=== PATIENT | female | born 1960 | race Caucasian/White ===

== ENCOUNTER → 2017-02-08 | Outpatient (CLI) | payer OTHER ==
[~2017-02-08] MED LIST: CTP/1 PO; FLUV100T12 PO; LEVO112T2 PO; LORA-741 PO; METO25TA3 PO; POLY335019 PO; ROPI1TAB29 PO; SENN-65 PO; SYN100 PO
[2017-02-08 17:26] LABS: BLOOD UREA NITROGEN 12 mg/dl (7-18); CALCIUM 9.4 mg/dl (8.5-10.1); CARBON DIOXIDE 27 mmol/L (21-32); CHLORIDE 103 mmol/L (98-107); CREATININE 0.69 mg/dl (0.60-1.20); GLUCOSE 119 mg/dl (70-99); POTASSIUM 3.9 mmol/L (3.5-5.1); SODIUM 137 mmol/L (136-145)
== END | disposition home or self-care (01) ==
LOC: C.LAB 16:41
PROVIDERS: ATTEND Student in an Organized Health Care Education/Training Program
DX: R07.9 Chest pain, unspecified (principal); E03.9 Hypothyroidism, unspecified; R73.9 Hyperglycemia, unspecified

== ENCOUNTER → 2017-02-09 | Outpatient (CLI) | payer OTHER ==
--- NOTE | 2017-02-09 07:03 | DIAGNOSTIC IMAGING REPORT ---
BILIARY ULTRASOUND CLINICAL HISTORY: Dyspepsia. Abdominal pain. COMPARISON STUDY: 12/07/2015 FINDINGS: The liver is of increased echogenicity, suggesting hepatic steatosis. There is no ductal dilatation. There are no focal masses. The gallbladder appears sonographically normal. There is no right-sided hydronephrosis. The common bile duct measures 4 mm. No pancreatic masses are visualized.. IMPRESSION: Hepatic steatosis. Ultrasonographically normal gallbladder and pancreas. No ductal dilatation. Electronically signed by: Prabhu Cannon M.D. 02/09/2017 7:01 AM Dictated Date/Time: 02/09/2017 7:00 AM
== END | disposition home or self-care (01) ==
LOC: C.ULTR 05:56
PROVIDERS: ATTEND Student in an Organized Health Care Education/Training Program
DX: K30 Functional dyspepsia (principal); K76.0 Fatty (change of) liver, not elsewhere classified

== ENCOUNTER → 2017-02-20 | Outpatient (CLI) | payer OTHER | END | disposition home or self-care (01) | LOC: C.LAB 07:02 | PROVIDERS: ATTEND Family Medicine | DX: R73.9 Hyperglycemia, unspecified (principal) ==

== ENCOUNTER → 2017-03-20 | Outpatient (CLI) | payer OTHER ==
[2017-03-20 12:23] LABS: GLUCOSE,FASTING 159 mg/dl (70-99)
[2017-03-20 13:00] LABS: ALKALINE PHOSPHATASE 96 U/L (45-117); ALT/SGPT 85 U/L (12-78); AST/SGOT 67 U/L (15-37); CHOLESTEROL 202 mg/dl (0-200); CHOLESTEROL/HDL RATIO 4.2; HDL CHOLESTEROL 48 mg/dl; LDL CHOLESTEROL CALCULATED 112 mg/dl; TRIGLYCERIDES 211 mg/dl (0-150); VERY LOW DENSITY LIPOPROT CALC 42 mg/dl
[2017-03-20 13:12] LABS: ESTIMATED AVERAGE GLUCOSE 194 mg/dl; HA1C FLAG Normal (Normal)
== END | disposition home or self-care (01) ==
LOC: C.LAB 06:57
PROVIDERS: ATTEND Student in an Organized Health Care Education/Training Program
DX: Z13.1 Encounter for screening for diabetes mellitus (principal); K76.0 Fatty (change of) liver, not elsewhere classified

== ENCOUNTER 2017-05-17 06:47 | Emergency (ER) | payer OTHER ==
[~2017-05-17] VITALS: Ht 152.4 cm; Wt 75.7 kg
[~2017-05-17 06:47] MED LIST changes: -CTP/1 PO; -LEVO112T2 PO; -POLY335019 PO; -SENN-65 PO
[2017-05-17 06:54] VITALS: TEMP 36.5; Ht 152.4 cm; Wt 75.7 kg
[2017-05-17] MEDS ORDERED: LEVO112T2 PO (07:06)
[2017-05-17] MEDS ORDERED: CTP/1 PO (07:06)
[2017-05-17] MEDS ORDERED: SODIUM CHLORIDE 0.9% 1000ML 500 ML IV STA (07:09)
[2017-05-17] MEDS ORDERED: KETOROLAC TROMETHAMINE 30 MG/ML VIAL IV STA (07:09)
[2017-05-17] MEDS ORDERED: ONDANSETRON INJ 2 MG/ML 2 ML VIAL IV STA (07:09)
[2017-05-17] MEDS ORDERED: SODIUM CHLORIDE 0.9% 1000ML 1,000 ML IV STA (07:09)
[2017-05-17] MEDS ORDERED: ACETAMINOPHEN 500 MG TAB PO STA (07:09)
[2017-05-17] MEDS ORDERED: OPTIRAY 320 IV PRN (07:30)
--- NOTE | 2017-05-17 07:32 | EMERGENCY ROOM VISIT NOTE ---
History Report prepared by Edmund: Lizbeth Rico Under the Supervision of: Dr. William Cedillo M.D. First contact with patient: 06:53 Chief Complaint: ABDOMINAL PAIN Stated Complaint: SICK TO STOMACH,OVARIES HURTING X 3DAYS Nursing Triage Summary: pain in lower abdomen for the past 3 days. denies n/v/d. History of Present Illness The patient is a 56 year old female who presents to the Emergency Room with complaints of worsening bilateral lower abdominal pain that started 3 days ago. She rates her discomfort as a 10/10 in severity. The patient states that she has been unable to sleep much the last couple of nights secondary to the pain. The pain is relieved for a short amount of time with Tylenol. Nothing seems to cause the pain or make it worse. The pain on her right side wraps around into her back. She states that she experiences nausea whenever she eats, but she denies vomiting and diarrhea. She also denies fevers, chills, vaginal discharge , and urinary symptoms including burning, increased frequency, or increased urgency. The patient states that she experiences bloating whenever she eats but that is secondary to her history of gastroparesis. She has never experienced this type of pain in the past. The patient states that she does not have an appetite but that is normal for her and has not changed with her current symptoms. She regularly experiences issues with constipation and states that she may be a little constipated currently. The only abdominal procedure that she has had is a tubal ligation and she states that she still has her uterus, ovaries, gallbladder, and appendix. The patient denies any history of kidney stones, diverticulitis, or problems with her ovaries. The patient has 2 periumbilical hernias, but has not noticed any lumps in the area of her pain. Source of History: patient Onset: 3 days ago Position: abdomen (bilateral lower) Symptom Intensity: 10/10 Quality: other (bilateral lower abdominal pain) Timing: worsening Modifying Factors (Worsening): other (None) Modifying Factors (Relieving): tylenol Associated Symptoms: + nausea, No fevers, No chills, No vomiting, No diarrhea, No urinary symptoms (including burning, increased frequency, increased urgency) Note: no vaginal discharge Review of Systems See HPI for pertinent positives & negatives. A total of 10 systems reviewed and were otherwise negative. Past Medical & Surgical Medical Problems: (1) Cervical radiculopathy (2) Chest pain (3) Lightheaded (4) Low back pain (5) Periumbilical hernia Surgical Problems: (1) History of tubal ligation Family History FH: cancer Social History Smoking Status: Never Smoker Alcohol Use: none Drug Use: none Marital Status: , in relationship Housing Status: lives with family Occupation Status: employed Current/Historical Medications Scheduled Clonidine Hcl (Catapres), 0.5 TAB PO DAILY Fluvoxamine Maleate (Luvox), 150 MG PO HS Levothyroxine Sodium (Synthroid), 112 MCG PO DAILY Ropinirole Hydrochloride (Requip), 2 MG PO BID AT 1100 & 1800 Sennosides-Docusate Sodium (Senokot S), 2 TAB PO BID Allergies Coded Allergies: Buspirone (Verified Allergy, Unknown, PER DR ROSEN OUTPATIENT RX, 05/17/17) Nefazodone (Verified Allergy, Unknown, PER DR ROSEN OUTPATIENT RX, 05/17/17) Paroxetine (Verified Allergy, Unknown, PER DR ROSEN OUTPATIENT RX, 05/17/17) Sertraline (Verified Allergy, Unknown, PER DR ROSEN OUTPATIENT RX, 05/17/17) Physical Exam Vital Signs Date Time Temp Pulse Resp B/P (MAP) Pulse Ox O2 Delivery O2 Flow Rate FiO2 05/17/17 11:40 56 16 137/78 97 05/17/17 08:55 61 16 144/80 97 Room Air 05/17/17 06:54 36.5 67 18 144/89 97 Room Air Physical Exam GENERAL: Patient is in no acute distress. HEENT: No acute trauma, normocephalic atraumatic, mucous membranes moist, no nasal congestion, no scleral icterus. NECK: No stridor, no adenopathy, no meningismus, trachea is midline. LUNGS: Clear to auscultation bilaterally, no wheeze, no rhonchi, breath sounds equal. HEART: Without murmurs gallops or rubs, regular rate and rhythm. ABDOMEN: Soft, tender to palpation of both lower quadrants, bowel sounds positive, no hernias, no peritonitis. EXTREMITIES: No cyanosis or edema, full range of motion of all the joints without pain or difficulty, no signs for acute trauma. NEUROLOGIC: Oriented x 3, no acute motor or sensory deficits, no focal weakness. SKIN: No rash, no jaundice, no diaphoresis. Medical Decision & Procedures ER Provider Diagnostic Interpretation: CT results as stated below per my review and radiologist interpretation: CT SCAN OF THE ABDOMEN AND PELVIS WITH IV CONTRAST FINDINGS: Lung bases: The heart is normal in size and without pericardial effusion. The lung bases are clear noting dependent atelectasis. Liver: The contrast-enhanced liver is enlarged, measuring 21.2 cm in length. The liver demonstrates diffusely diminished attenuation consistent with hepatic steatosis. Fatty sparing is seen adjacent to gallbladder fossa. There is no intrahepatic biliary ductal dilatation. The hepatic veins and portal veins are patent. There are accessory right lobe hepatic veins. Gallbladder: Unremarkable. Spleen: The spleen is enlarged, measuring 15 cm in length. Pancreas: Unremarkable. Adrenal glands: Unremarkable. Kidneys: The contrast enhanced kidneys are normal in size and without hydronephrosis. The kidneys enhance symmetrically. Abdominal vasculature: The abdominal aorta is normal in course and caliber noting mild atherosclerotic calcification. Bowel: The small bowel and colon are normal in course and caliber. A duodenal diverticulum is incidentally noted. There is moderate colonic fecal retention. The appendix is well-visualized and normal. Peritoneum: There is no intraperitoneal free air or abdominal ascites. There are large fat-containing umbilical and supra umbilical hernias. Lymphadenopathy: None. Pelvic viscera: The bladder is normal as visualized. A bicornuate uterus is suggested. No adnexal lesion is seen. Bilateral ovarian follicles are noted. Skeletal structures: No lytic or blastic lesions are seen. IMPRESSION: 1. There are no acute infectious or inflammatory findings in the abdomen or pelvis. 2. Hepatomegaly and hepatic steatosis. 3. Splenomegaly. 4. Suspect a bicornuate uterus. 5. Additional findings as above. Electronically signed by: William Low M.D. 05/17/2017 10:43 AM Dictated Date/Time: 05/17/2017 10:18 AM Laboratory Results 05/17/17 07:25 Red Blood Count 4.64, Mean Corpuscular Volume 89.4, Mean Corpuscular Hemoglobin 30.4, Mean Corpuscular Hemoglobin Concent 34.0, Mean Platelet Volume 9.5, Neutrophils (%) (Auto) 57.8, Lymphocytes (%) (Auto) 32.2, Monocytes (%) (Auto) 7.1, Eosinophils (%) (Auto) 2.4, Basophils (%) (Auto) 0.5, Neutrophils # (Auto) 3.20, Lymphocytes # (Auto) 1.78, Monocytes # (Auto) 0.39, Eosinophils # (Auto) 0.13, Basophils # (Auto) 0.03 05/17/17 07:25 Test 05/17/17 07:25 05/17/17 09:44 White Blood Count 5.53 K/uL (4.8-10.8) Red Blood Count 4.64 M/uL (4.2-5.4) Hemoglobin 14.1 g/dL (12.0-16.0) Hematocrit 41.5 % (37-47) Mean Corpuscular Volume 89.4 fL (80-100) Mean Corpuscular Hemoglobin 30.4 pg (25-34) Mean Corpuscular Hemoglobin Concent 34.0 g/dl (32-36) Platelet Count 205 K/uL (130-400) Mean Platelet Volume 9.5 fL (7.4-10.4) Neutrophils (%) (Auto) 57.8 % Lymphocytes (%) (Auto) 32.2 % Monocytes (%) (Auto) 7.1 % Eosinophils (%) (Auto) 2.4 % Basophils (%) (Auto) 0.5 % Neutrophils # (Auto) 3.20 K/uL (1.4-6.5) Lymphocytes # (Auto) 1.78 K/uL (1.2-3.4) Monocytes # (Auto) 0.39 K/uL (0.11-0.59) Eosinophils # (Auto) 0.13 K/uL (0-0.5) Basophils # (Auto) 0.03 K/uL (0-0.2) RDW Standard Deviation 44.0 fL (36.4-46.3) RDW Coefficient of Variation 13.4 % (11.5-14.5) Immature Granulocyte % (Auto) 0.0 % Immature Granulocyte # (Auto) 0.00 K/uL (0.00-0.02) Anion Gap 8.0 mmol/L (3-11) Est Creatinine Clear Calc Drug Dose 76.9 ml/min Estimated GFR () 103.1 Estimated GFR (Non- 88.9 BUN/Creatinine Ratio 14.1 (10-20) Lactic Acid Level 1.7 mmol/L (0.4-2.0) Calcium Level 9.1 mg/dl (8.5-10.1) Total Bilirubin 0.4 mg/dl (0.2-1) Aspartate Amino Transf (AST/SGOT) 40 U/L (15-37) Alanine Aminotransferase (ALT/SGPT) 69 U/L (12-78) Alkaline Phosphatase 100 U/L (45-117) Total Protein 6.9 gm/dl (6.4-8.2) Albumin 3.7 gm/dl (3.4-5.0) Globulin 3.2 gm/dl (2.5-4.0) Albumin/Globulin Ratio 1.2 (0.9-2) Lipase 109 U/L (73-393) Urine Color YELLOW Urine Appearance CLEAR (CLEAR) Urine pH 5.0 (4.5-7.5) Urine Specific Isabel 1.014 (1.000-1.030) Urine Protein NEG (NEG) Urine Glucose (UA) 1+ (NEG) Urine Ketones NEG (NEG) Urine Occult Blood NEG (NEG) Urine Nitrite NEG (NEG) Urine Bilirubin NEG (NEG) Urine Urobilinogen NEG (NEG) Urine Leukocyte Esterase NEG (NEG) Laboratory results reviewed by me. Medications Administered Medications (Trade) Dose Ordered Sig/Mallorie Route Start Time Stop Time Status Last Admin Dose Admin Sodium Chloride 500 ml @ 999 mls/hr Q31M STAT IV 05/17/17 07:09 05/17/17 07:39 DC 05/17/17 07:32 999 MLS/HR Ondansetron HCl (Zofran Inj) 4 mg NOW STAT IV 05/17/17 07:09 05/17/17 07:16 DC 05/17/17 07:32 4 MG Sodium Chloride 1,000 ml @ 125 mls/hr Q8H STAT IV 05/17/17 07:09 05/17/17 11:43 DC 05/17/17 07:50 125 MLS/HR Ketorolac Tromethamine (Toradol Inj) 15 mg NOW STAT IV 05/17/17 07:09 05/17/17 07:16 DC 05/17/17 07:32 15 MG Acetaminophen (Tylenol Tab) 1,000 mg NOW STAT PO 05/17/17 07:09 05/17/17 07:16 DC 05/17/17 07:33 1,000 MG Senna/Docusate Sodium (Senokot S Tab) 2 tab NOW ONCE PO 05/17/17 11:30 05/17/17 11:31 DC 05/17/17 11:38 2 TAB ED Course 0707: The patient was evaluated in room A12. A complete history and physical exam was performed. 0709: Ordered Tylenol Tab 1000 mg PO, Toradol Inj 15 mg IV, Sodium Chloride 1000 ml @ 125 mls/hr IV, Zofran Inj 4 mg IV, Sodium Chloride 500 ml @ 999 mls/ hr IV 1120: Reevaluated the patient. She is doing well. Discussed results and discharge instructions: she verbalized understanding and agreement. The patient is ready for discharge. 1130: Ordered Senna/docusate Sodium 2 tab PO Medical Decision Differential diagnoses considered include diverticulitis, appendicitis, constipation, pancreatitis, biliary colic, ovarian cyst, UTI, renal colic, hernia. Medication Reconciliation: I attest that I have personally reviewed the patient' s current medication list. Blood pressure screening: Patient was found to have a slightly elevated blood pressure due to circumstances. I do not believe that the patient requires hypertension monitoring. There is no leukocytosis or concerning anemia. No significant electrolyte abnormality, kidney failure, hepatitis or pancreatitis. Urinalysis does not show infection. Abdominal and pelvis CT shows constipation, no appendicitis or diverticulitis, no bowel obstruction. The patient received IV saline, IV Zofran, IV Toradol and oral Tylenol. She was given oral Senokot. The patient looks well, there is no peritonitis. She is not toxic or febrile. Her pain may be from her constipation. She is being discharged with instructions on using Senokot and Miralax. If things are worsening, she can return. Impression Primary Impression: Lower abdominal pain Additional Impression: Constipation Scribe Attestation The scribe's documentation has been prepared under my direction and personally reviewed by me in its entirety. I confirm that the note above accurately reflects all work, treatment, procedures, and medical decision making performed by me. Departure Information Dispostion Home / Self-Care Prescriptions Sennosides-Docusate Sodium (SENOKOT S) 1 Tab Tab 2 TAB PO BID, #30 TAB Prov: William Cedillo M.D. 05/17/17 Referrals Herb Rosen M.D. (PCP) Forms Call Back Authorization, HOME CARE DOCUMENTATION FORM, IMPORTANT VISIT INFORMATION Patient Instructions My [facility] [employer] Additional Instructions senokot 2 tab twice a day to help bowel movements Miralax 1 heaping capfull in 8 oz of liquid every few hours until start having bowel movements return for worsening symptoms or if not improving Problem Qualifiers Additional Impression: Constipation Constipation type: unspecified constipation type Qualified Codes: K59.00 - Constipation, unspecified
[2017-05-17 07:38] LABS: BASO % 0.5 %; BASO ABS # 0.03 K/uL (0-0.2); COMPLETE YES; EOS % 2.4 %; HEMATOCRIT 41.5 % (37-47); LYMPH % 32.2 %; LYMPH ABS # 1.78 K/uL (1.2-3.4); MEAN CELL VOLUME 89.4 fL (80-100); MEAN CORPUSCULAR HEMOGLOBIN 30.4 pg (25-34); MEAN PLATELET VOLUME 9.5 fL (7.4-10.4); MONO % 7.1 %; NEUT % 57.8 %; PLATELET COUNT 205 K/uL (130-400); RED BLOOD COUNT 4.64 M/uL (4.2-5.4); WHITE BLOOD COUNT 5.53 K/uL (4.8-10.8)
[2017-05-17 07:54] LABS: BUN/CREATININE RATIO 14.1 (10-20); CALCIUM 9.1 mg/dl (8.5-10.1); CREATININE 0.76 mg/dl (0.60-1.20)
[2017-05-17 07:57] LABS: ALB/GLOB RATIO 1.2 (0.9-2)
[2017-05-17 09:52] LABS: URINE APPEARANCE CLEAR (CLEAR); URINE BILIRUBIN NEG (NEG); URINE COLOR YELLOW; URINE NITRITE NEG (NEG); URINE SPECIFIC GRAVITY 1.014 (1.000-1.030); UROBILINOGEN NEG (NEG); ZZUR CULT IF INDIC CLEAN CATCH NO
[2017-05-17 09:56] LABS: MANUAL MICROSCOPIC REQUIRED? NO; REVIEW REQ? NO
--- NOTE | 2017-05-17 10:44 | DIAGNOSTIC IMAGING REPORT ---
CT SCAN OF THE ABDOMEN AND PELVIS WITH IV CONTRAST CLINICAL HISTORY: Generalized abdominal pain. COMPARISON STUDY: Abdominal CT dated 08/27/2006. TECHNIQUE: Following the IV administration of 92 cc of Optiray 320, CT scan of the abdomen and pelvis is performed from the lung bases to the proximal femora. Images are reviewed in the axial, sagittal, and coronal planes. IV contrast was administered without complication. Automated dose control exposure was utilized. CT DOSE: 592.02 mGy.cm FINDINGS: Lung bases: The heart is normal in size and without pericardial effusion. The lung bases are clear noting dependent atelectasis. Liver: The contrast-enhanced liver is enlarged, measuring 21.2 cm in length. The liver demonstrates diffusely diminished attenuation consistent with hepatic steatosis. Fatty sparing is seen adjacent to gallbladder fossa. There is no intrahepatic biliary ductal dilatation. The hepatic veins and portal veins are patent. There are accessory right lobe hepatic veins. Gallbladder: Unremarkable. Spleen: The spleen is enlarged, measuring 15 cm in length. Pancreas: Unremarkable. Adrenal glands: Unremarkable. Kidneys: The contrast enhanced kidneys are normal in size and without hydronephrosis. The kidneys enhance symmetrically. Abdominal vasculature: The abdominal aorta is normal in course and caliber noting mild atherosclerotic calcification. Bowel: The small bowel and colon are normal in course and caliber. A duodenal diverticulum is incidentally noted. There is moderate colonic fecal retention. The appendix is well-visualized and normal. Peritoneum: There is no intraperitoneal free air or abdominal ascites. There are large fat-containing umbilical and supra umbilical hernias. Lymphadenopathy: None. Pelvic viscera: The bladder is normal as visualized. A bicornuate uterus is suggested. No adnexal lesion is seen. Bilateral ovarian follicles are noted. Skeletal structures: No lytic or blastic lesions are seen. IMPRESSION: 1. There are no acute infectious or inflammatory findings in the abdomen or pelvis. 2. Hepatomegaly and hepatic steatosis. 3. Splenomegaly. 4. Suspect a bicornuate uterus. 5. Additional findings as above. Electronically signed by: William Low M.D. 05/17/2017 10:43 AM Dictated Date/Time: 05/17/2017 10:18 AM
[2017-05-17] MEDS ORDERED: SENN-65 PO (11:30)
[2017-05-17] MEDS ORDERED: DOCUSATE SODIUM/SENNA 50/8.6MG TAB PO ONE (11:30)
[2017-05-17 11:40] VITALS: BP 137/78; PULSE 56; O2SAT 97
== END 2017-05-17 11:41 | disposition home or self-care (01) ==
LOC: C.EDB 06:50 → C.EDA 11:41
DX: K59.00 Constipation, unspecified (principal); K31.84 Gastroparesis; Z98.51 Tubal ligation status; Z80.9 Family history of malignant neoplasm, unspecified; Z79.899 Other long term (current) drug therapy

== ENCOUNTER 2017-05-19 02:54 | Emergency (ER) | payer OTHER ==
[~2017-05-19] VITALS: Ht 152.4 cm; Wt 76.9 kg
[~2017-05-19 02:54] MED LIST changes: +CTP/1 PO; +LEVO112T2 PO; -LORA-741 PO; -METO25TA3 PO; +SENN-65 PO; -SYN100 PO
[2017-05-19 02:59] VITALS: TEMP 36.6; Ht 152.4 cm; Wt 76.9 kg
[2017-05-19] MEDS ORDERED: SENN-65 PO (03:18)
[2017-05-19] MEDS ORDERED: POLY335019 PO (03:18)
[2017-05-19] MEDS ORDERED: SODIUM CHLORIDE 0.9% 1000ML 1,000 ML IV STA (04:00)
[2017-05-19] MEDS ORDERED: KETOROLAC TROMETHAMINE 15 MG/ML VIAL IV STA (04:00)
[2017-05-19] MEDS ORDERED: ONDANSETRON INJ 2 MG/ML 2 ML VIAL IV STA (04:00)
[2017-05-19 04:01] LABS: BASO % 0.3 %; BASO ABS # 0.02 K/uL (0-0.2); COMPLETE YES; IG% 0.2 %; LYMPH % 29.6 %; LYMPH ABS # 1.76 K/uL (1.2-3.4); MEAN CELL VOLUME 89.2 fL (80-100); MEAN CORPUSCULAR HEMOGLOBIN 30.5 pg (25-34); MEAN CORPUSCULAR HGB CONC 34.2 g/dl (32-36); MEAN PLATELET VOLUME 9.4 fL (7.4-10.4); MONO % 6.2 %; NEUT % 61.7 %; PLATELET COUNT 196 K/uL (130-400); RED BLOOD COUNT 4.26 M/uL (4.2-5.4); WHITE BLOOD COUNT 5.95 K/uL (4.8-10.8)
[2017-05-19 04:03] LABS: URINE APPEARANCE CLEAR (CLEAR); URINE BILIRUBIN NEG (NEG); URINE COLOR YELLOW; URINE NITRITE NEG (NEG); URINE SPECIFIC GRAVITY 1.026 (1.000-1.030); UROBILINOGEN NEG (NEG); ZZUR CULT IF INDIC CLEAN CATCH NO
[2017-05-19 04:04] LABS: MANUAL MICROSCOPIC REQUIRED? NO; REVIEW REQ? NO
--- NOTE | 2017-05-19 04:07 | EMERGENCY ROOM VISIT NOTE ---
History First contact with patient: 03:20 Chief Complaint: ABDOMINAL PAIN Stated Complaint: ABD PAIN,BACK PAIN ON RT SIDE Nursing Triage Summary: Patient reports RLQ abdominal pain with nausea that woke her from sleep. Patient seen in ED recently and told she was constipated. Patient has been taking prescribed medicine and having bowel movements. History of Present Illness The patient is a 56 year old female who presents to the Emergency Room with complaints of persistent abdominal pain. The patient was seen here 2 days ago for similar symptoms. She states that the pain woke her up this morning. She reports pain in her right lower abdomen which radiates into her right low back. She rates the discomfort an 8/10. She states that her symptoms did slightly improve after being seen here, but then worsened again. She has been taking medications for constipation at home and has been having normal bowel movements. She reports some mild nausea, but denies vomiting. She reports a low appetite, which is baseline for her. She denies any fevers or urinary symptoms. She states the pain is occasionally radiating into the right leg. She has a history of a tubal ligation and ablation and denies any other abdominal surgeries. Review of Systems A complete 10 point review of systems was reviewed with the patient with pertinent positives and negatives as per history of present illness. All else were negative. Past Medical/Surgical History Medical Problems: (1) Cervical radiculopathy (2) Chest pain (3) Lightheaded (4) Low back pain (5) Periumbilical hernia Surgical Problems: (1) History of tubal ligation Family History FH: cancer Social History Smoking Status: Never Smoker Alcohol Use: none Drug Use: none Marital Status: , in relationship Housing Status: lives with family Occupation Status: employed Current/Historical Medications Scheduled Clonidine Hcl (Catapres), 0.5 TAB PO BID Fluvoxamine Maleate (Luvox), 150 MG PO HS Levothyroxine Sodium (Synthroid), 112 MCG PO DAILY Polyethylene Glycol 3350 (Miralax), 17 GM PO DAILY Ropinirole Hydrochloride (Requip), 2 MG PO BID AT 1100 & 1800 Sennosides-Docusate Sodium (Senokot S), 2 TABS PO BID Allergies Coded Allergies: Buspirone (Verified Allergy, Unknown, PER DR ROSEN OUTPATIENT RX, 05/19/17) Nefazodone (Verified Allergy, Unknown, PER DR ROSEN OUTPATIENT RX, 05/19/17) Paroxetine (Verified Allergy, Unknown, PER DR ROSEN OUTPATIENT RX, 05/19/17) Sertraline (Verified Allergy, Unknown, PER DR ROSEN OUTPATIENT RX, 05/19/17) Physical Exam Vital Signs Date Time Temp Pulse Resp B/P (MAP) Pulse Ox O2 Delivery O2 Flow Rate FiO2 05/19/17 07:09 68 18 141/70 96 05/19/17 05:39 68 18 153/85 98 Room Air 05/19/17 02:59 36.6 72 16 141/83 95 Room Air Physical Exam VITALS: Vitals are noted on the nurse's note and reviewed by myself. Vital signs stable. GENERAL: This is a 56-year-old female, in no acute distress, nondiaphoretic, well-developed well-nourished. SKIN: Capillary reflex less than 2 seconds. HEART: Regular rate and rhythm without murmurs gallops or rubs. LUNGS: Clear to auscultation bilaterally without wheezes, rales or rhonchi. ABDOMEN: Positive bowel sounds x 4. Soft, tender over the right lower quadrant and suprapubic region. No guarding or rebound tenderness. No CVA tenderness. NEURO: Patient was alert and oriented to person place and time. Medical Decision & Procedures ER Provider Diagnostic Interpretation: EXAMINATION: PELVIC ULTRASOUND FINDINGS: The uterus measured 9.9 cm.. Possible bicornuate configuration. Trace fluid and potentially a small polyp within the central uterine canal measuring 8 mm.. Possible small lower segment uterine fibroid The endometrial stripe measured 9 mm with a possible 8 mm polyp. The right ovary measured 2.4 cm with normal vascular flow to centimeter cyst. The left ovary measured 3.3 cm normal vascular flow. 2.4 cm cyst.. Moderate prominence of the left uterine tube There is no ultrasonographic evidence of ovarian torsion. It should be noted that ovarian torsion can be present with normal Doppler ultrasonographic findings. There was no evidence of pathologic free pelvic fluid. IMPRESSION: 1. Bilateral ovarian cyst. 2. Moderate endometrial fluid with a probable endometrial polyp 3. Normal vascular flow to both ovaries 4. Probable septate uterus 5. Moderate prominence of what is potentially a left uterine tube at 6 mm Laboratory Results 05/19/17 03:50 Red Blood Count 4.26, Mean Corpuscular Volume 89.2, Mean Corpuscular Hemoglobin 30.5, Mean Corpuscular Hemoglobin Concent 34.2, Mean Platelet Volume 9.4, Neutrophils (%) (Auto) 61.7, Lymphocytes (%) (Auto) 29.6, Monocytes (%) (Auto) 6.2, Eosinophils (%) (Auto) 2.0, Basophils (%) (Auto) 0.3, Neutrophils # (Auto) 3.67, Lymphocytes # (Auto) 1.76, Monocytes # (Auto) 0.37, Eosinophils # (Auto) 0.12, Basophils # (Auto) 0.02 05/19/17 03:50 Test 05/19/17 03:45 05/19/17 03:50 Urine Color YELLOW Urine Appearance CLEAR (CLEAR) Urine pH 5.0 (4.5-7.5) Urine Specific [place] 1.026 (1.000-1.030) Urine Protein NEG (NEG) Urine Glucose (UA) 2+ (NEG) Urine Ketones NEG (NEG) Urine Occult Blood NEG (NEG) Urine Nitrite NEG (NEG) Urine Bilirubin NEG (NEG) Urine Urobilinogen NEG (NEG) Urine Leukocyte Esterase NEG (NEG) White Blood Count 5.95 K/uL (4.8-10.8) Red Blood Count 4.26 M/uL (4.2-5.4) Hemoglobin 13.0 g/dL (12.0-16.0) Hematocrit 38.0 % (37-47) Mean Corpuscular Volume 89.2 fL (80-100) Mean Corpuscular Hemoglobin 30.5 pg (25-34) Mean Corpuscular Hemoglobin Concent 34.2 g/dl (32-36) Platelet Count 196 K/uL (130-400) Mean Platelet Volume 9.4 fL (7.4-10.4) Neutrophils (%) (Auto) 61.7 % Lymphocytes (%) (Auto) 29.6 % Monocytes (%) (Auto) 6.2 % Eosinophils (%) (Auto) 2.0 % Basophils (%) (Auto) 0.3 % Neutrophils # (Auto) 3.67 K/uL (1.4-6.5) Lymphocytes # (Auto) 1.76 K/uL (1.2-3.4) Monocytes # (Auto) 0.37 K/uL (0.11-0.59) Eosinophils # (Auto) 0.12 K/uL (0-0.5) Basophils # (Auto) 0.02 K/uL (0-0.2) RDW Standard Deviation 42.9 fL (36.4-46.3) RDW Coefficient of Variation 13.2 % (11.5-14.5) Immature Granulocyte % (Auto) 0.2 % Immature Granulocyte # (Auto) 0.01 K/uL (0.00-0.02) Anion Gap 7.0 mmol/L (3-11) Est Creatinine Clear Calc Drug Dose 71.9 ml/min Estimated GFR () 94.0 Estimated GFR (Non- 81.1 BUN/Creatinine Ratio 18.2 (10-20) Calcium Level 8.7 mg/dl (8.5-10.1) Total Bilirubin 0.4 mg/dl (0.2-1) Aspartate Amino Transf (AST/SGOT) 34 U/L (15-37) Alanine Aminotransferase (ALT/SGPT) 60 U/L (12-78) Alkaline Phosphatase 96 U/L (45-117) Total Protein 6.5 gm/dl (6.4-8.2) Albumin 3.4 gm/dl (3.4-5.0) Globulin 3.1 gm/dl (2.5-4.0) Albumin/Globulin Ratio 1.1 (0.9-2) Lipase 481 U/L (73-393) Medications Administered Medications (Trade) Dose Ordered Sig/Mallorie Route Start Time Stop Time Status Last Admin Dose Admin Ondansetron HCl (Zofran Inj) 4 mg NOW STAT IV 05/19/17 04:00 05/19/17 04:01 DC 05/19/17 04:09 4 MG Sodium Chloride 1,000 ml @ 999 mls/hr Q1H1M STAT IV 05/19/17 04:00 05/19/17 05:00 DC 05/19/17 04:10 999 MLS/HR Ketorolac Tromethamine (Toradol Inj) 30 mg STK-MED ONCE .ROUTE 05/19/17 04:35 05/19/17 04:36 DC 05/19/17 04:10 15 MG Medical Decision Differential diagnosis includes appendicitis, UTI, ovarian cyst, ovarian torsion , bowel obstruction, constipation, among others. The patient is a 56-year-old female who presents today complaining of persistent abdominal pain. Patient was seen here 2 days ago and had negative CT scan. Labs today revealed no leukocytosis, anemia or concerning electrolyte abnormalities. Labs were essentially unchanged from previous visit. Glucose is elevated and patient will need follow-up with her PCP regarding this. Urinalysis was not suggestive of infection. Pelvic ultrasound was performed and did show bilateral ovarian cysts, which may be contributing to the patient' s pain. I do not feel that repeat CT is necessary given no leukocytosis or fever. The patient was instructed to follow-up with her PCP and [employer]AFF [employer] OFFICER regarding today's findings. She should return for worsening or new/concerning symptoms. Based on the patient's presentation and work up, I feel the patient is stable for outpatient treatment. The patient was educated to return to the emergency department for any worsening of their current condition or new/concerning symptoms. She will follow up with her PCP. Medication reconciliation: I attest that I have personally reviewed the patient 's current medication list. Blood Pressure Screening: Patient was found to have a slightly elevated blood pressure due to circumstances. I do not believe that the patient requires hypertension monitoring. Impression Primary Impression: Lower abdominal pain Departure Information Dispostion Home / Self-Care Condition GOOD Referrals Herb Rosen M.D. (PCP) Patient Instructions My [facility] Additional Instructions You have been treated in the Emergency Department for your Abdominal Pain. Laboratory results and imaging studies have ruled out any emergent causes for your abdominal pain which would warrant admission or surgery. For pain control, you can use the following [id number] medicines (if >12 yo): - Regular strength (325mg/tab) Tylenol (acetaminophen) 2 tabs every 4-6 hours as needed. Do not exceed 12 tablets in a 24 hour period. Avoid taking more than 4 grams (4000 mg) of Tylenol per day. This includes any other sources of acetaminophen you may take on a regular basis. - Regular strength (200 mg/tab) Advil (ibuprofen) 1-2 tabs every 4-6 hours as needed. Do not exceed a dose of 3200 mg per day. Follow up with your STAFF WEAPONS OFFICER. Drink plenty of water and stay well hydrated. As with any trip to the Emergency Department, you should follow-up with your Primary Care Provider from today's visit. Return to the emergency department if your symptoms persist despite treatment plan outlined above or if the following symptoms occur: Fevers, vomiting, worsening pain or any other new/concerning symptoms.
[2017-05-19 04:30] LABS: BUN/CREATININE RATIO 18.2 (10-20); CALCIUM 8.7 mg/dl (8.5-10.1); CREATININE 0.82 mg/dl (0.60-1.20); POTASSIUM 3.8 mmol/L (3.5-5.1)
[2017-05-19 04:32] LABS: ALB/GLOB RATIO 1.1 (0.9-2)
[2017-05-19] MEDS ORDERED: KETOROLAC TROMETHAMINE 30 MG/ML VIAL ONE (04:35)
--- NOTE | 2017-05-19 06:59 | DIAGNOSTIC IMAGING REPORT ---
EXAMINATION: PELVIC ULTRASOUND CLINICAL HISTORY: lower right abdominal pain PAIN COMPARISON STUDY: 12/23/2014 FINDINGS: The uterus measured 9.9 cm.. Possible bicornuate configuration. Trace fluid and potentially a small polyp within the central uterine canal measuring 8 mm.. Possible small lower segment uterine fibroid The endometrial stripe measured 9 mm with a possible 8 mm polyp. The right ovary measured 2.4 cm with normal vascular flow to centimeter cyst. The left ovary measured 3.3 cm normal vascular flow. 2.4 cm cyst.. Moderate prominence of the left uterine tube There is no ultrasonographic evidence of ovarian torsion. It should be noted that ovarian torsion can be present with normal Doppler ultrasonographic findings. There was no evidence of pathologic free pelvic fluid. IMPRESSION: 1. Bilateral ovarian cyst. 2. Moderate endometrial fluid with a probable endometrial polyp 3. Normal vascular flow to both ovaries 4. Probable septate uterus 5. Moderate prominence of what is potentially a left uterine tube at 6 mm Electronically signed by: Mario Niño M.D. 05/19/2017 6:58 AM Dictated Date/Time: 05/19/2017 6:52 AM
[2017-05-19 07:09] VITALS: BP 141/70; PULSE 68; O2SAT 96
== END 2017-05-19 07:11 | disposition home or self-care (01) ==
LOC: C.EDB 02:55
DX: N83.201 Unspecified ovarian cyst, right side (principal); N83.202 Unspecified ovarian cyst, left side; R10.31 Right lower quadrant pain; R11.0 Nausea

== ENCOUNTER → 2017-05-25 | Outpatient (CLI) | payer OTHER ==
[~2017-05-25] MED LIST changes: +POLY335019 PO
== END | disposition home or self-care (01) ==
LOC: C.PAPS 08:40
PROVIDERS: ATTEND Physician Assistant
DX: Z12.4 Encounter for screening for malignant neoplasm of cervix (principal)

== ENCOUNTER → 2017-05-27 | Outpatient (CLI) | payer OTHER | END | disposition home or self-care (01) | LOC: C.LAB 06:31 | PROVIDERS: ATTEND Physician Assistant | DX: N95.9 Unspecified menopausal and perimenopausal disorder (principal) ==

== ENCOUNTER → 2017-12-08 | Outpatient (CLI) | payer OTHER ==
[2017-12-08 10:22] LABS: HEMOGLOBIN A1C 6.3 % (4.5-5.6)
== END | disposition home or self-care (01) ==
LOC: C.LAB 08:43
PROVIDERS: ATTEND Family Medicine
DX: E11.9 Type 2 diabetes mellitus without complications (principal); E03.9 Hypothyroidism, unspecified

== ENCOUNTER 2018-02-13 11:39 | Emergency (ER) | payer OTHER ==
[~2018-02-13] VITALS: Ht 152.4 cm; Wt 76.0 kg
[2018-02-13 11:42] VITALS: TEMP 36.4; Ht 152.4 cm; Wt 76.0 kg
[2018-02-13] MEDS ORDERED: SODIUM CHLORIDE 0.9% 1000ML 1,000 ML IV STA (12:00)
[2018-02-13] MEDS ORDERED: ONDANSETRON INJ 2 MG/ML 2 ML VIAL IV STA (12:00)
[2018-02-13 12:03] LABS: BASO % 0.3 %; BASO ABS # 0.02 K/uL (0-0.2); EOS % 3.2 %; EOS ABS # 0.24 K/uL (0-0.5); HEMATOCRIT 40.7 % (37-47); HEMOGLOBIN 14.7 g/dL (12.0-16.0); IG# 0.01 K/uL (0.00-0.02); LYMPH % 24.6 %; LYMPH ABS # 1.85 K/uL (1.2-3.4); MEAN CELL VOLUME 88.7 fL (80-100); MEAN CORPUSCULAR HGB CONC 36.1 g/dl (32-36); MEAN PLATELET VOLUME 9.3 fL (7.4-10.4); MONO % 6.4 %; MONO ABS # 0.48 K/uL (0.11-0.59); NEUT % 65.4 %; NEUT ABS # 4.93 K/uL (1.4-6.5); PLATELET COUNT 217 K/uL (130-400); RED CELL DISTRIBUTION WIDTH CV 12.9 % (11.5-14.5); RED CELL DISTRIBUTION WIDTH SD 41.3 fL (36.4-46.3); WHITE BLOOD COUNT 7.53 K/uL (4.8-10.8)
[2018-02-13] MEDS ORDERED: OPTIRAY 320 IV PRN (12:15)
[2018-02-13 12:22] LABS: CREATININE 0.71 mg/dl (0.60-1.20)
[2018-02-13 12:23] LABS: ALBUMIN 4.2 gm/dl (3.4-5.0); CALCIUM 9.4 mg/dl (8.5-10.1)
[2018-02-13 12:26] LABS: TOTAL PROTEIN 7.7 gm/dl (6.4-8.2)
[2018-02-13] MEDS ORDERED: ASPI81TA28 PO (12:26)
[2018-02-13] MEDS ORDERED: GLC/500 PO (12:26)
--- NOTE | 2018-02-13 13:09 | DIAGNOSTIC IMAGING REPORT ---
ABD/PELVIS IV CONTRAST ONLY CLINICAL HISTORY: 57 years-old Female presenting with diffuse abd pain and fullness, gastroparesis. TECHNIQUE: Multidetector CT of the abdomen and pelvis was performed after the administration of intravenous contrast. IV contrast: 93 mL of Optiray 320. A dose lowering technique was used consistent with the principles of ALARA (as low as reasonably achievable). COMPARISON: 05/17/2017. CT DOSE (mGy.cm): The estimated cumulative dose is 527.68 mGycm. FINDINGS: Psychiatric Registered Nurse topogram: Unremarkable. Lung bases: Minimal basilar opacities, likely atelectasis. Normal heart size. No pericardial or pleural effusion. Liver: Mildly enlarged measuring over 19 cm in maximal sagittal dimension. Density consistent with hepatic steatosis. No focal lesion. Patent hepatic vasculature. Biliary: No intrahepatic or extrahepatic biliary ductal dilatation. Normal gallbladder. Pancreas: Normal. Spleen: Mildly enlarged measuring 13.4 cm in maximal sagittal dimension. Adrenal glands: Normal. Kidneys and ureters: Normal. No hydronephrosis. Bladder: Normal. Pelvic organs: A septate uterus morphology suggested. Normal ovaries. Bowel: Moderate stool burden in the right and transverse colon. The appendix is normal. Fecal material in the distal small bowel suggest delayed transit. No bowel obstruction. Prominent duodenal diverticulum at the level of the redundant duodenum. Peritoneal cavity: No free fluid or intraperitoneal gas. Lymph nodes: No enlarged lymph nodes in the abdomen or pelvis. Vasculature: Aorta and IVC patent and normal in caliber. Abdominal wall: Several small fat-containing ventral midline hernias noted. No associated inflammatory change. Musculoskeletal: Normal. IMPRESSION: 1. Feces in the distal small bowel suggest delayed transit. No evidence of bowel obstruction. 2. Hepatomegaly with hepatic steatosis. 3. Splenomegaly, which is nonspecific and can be seen in the setting of portal hypertension or lymphoproliferative disorders. Electronically signed by: Connor Real M.D. 02/13/2018 1:08 PM Dictated Date/Time: 02/13/2018 1:00 PM
[2018-02-13 14:36] VITALS: BP 121/73; PULSE 73; O2SAT 97
--- NOTE | 2018-02-13 18:41 | EMERGENCY ROOM VISIT NOTE ---
History Report prepared by Edmund: Johnny Ortiz Under the Supervision of: Dr. Alirio Brady D.O. First contact with patient: 11:51 Chief Complaint: ABDOMINAL PAIN Stated Complaint: SICK TO STOMACH History of Present Illness The patient is a 57 year old female who presents to the Emergency Room with complaints of a constant abdominal pain and nausea that began at 0900, 3 hours ago, after eating broccoli and carrots. The patient rates her pain as a 7/10 in severity. She states that her pain is localized to her epigastrium and that she feels very bloated across her entire abdomen. Nothing seems to improve the symptoms, but she notes that it is worse after eating pasta/foods high in carbohydrates. The patient notes that she normally gets this bloating sensation after eating as she has a history of gastroparesis. This diagnosis was given 4 years ago. She felt the need to vomit secondary to her nausea, but has not. The patient has no history of abdominal surgeries. She does have a history of diabetes and is on Metformin. She denies any other headache, change in vision, fevers, chest pain, shortness of breath, diarrhea, pain with urination, and melena. 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 A total of 10 systems reviewed and were otherwise negative. Past Medical & Surgical Medical Problems: (1) Cervical radiculopathy (2) Chest pain (3) Lightheaded (4) Low back pain (5) Periumbilical hernia Surgical Problems: (1) History of tubal ligation Family History FH: cancer Social History Smoking Status: Never Smoker Alcohol Use: none Drug Use: none Marital Status: , in relationship Housing Status: lives with family Occupation Status: employed Current/Historical Medications Scheduled Aspirin (Aspirin Ec), 81 MG PO DAILY Fluvoxamine Maleate (Luvox), 150 MG PO HS Levothyroxine Sodium (Synthroid), 112 MCG PO DAILY Metformin Hcl (Glucophage), 500 MG PO BID Ropinirole Hydrochloride (Requip), 2 MG PO BID AT 1100 & 1800 Allergies Coded Allergies: Buspirone (Verified Allergy, Unknown, PER DR ROSEN OUTPATIENT RX, 02/13/18) Nefazodone (Verified Allergy, Unknown, PER DR ROSEN OUTPATIENT RX, 02/13/18) Paroxetine (Verified Allergy, Unknown, PER DR ROSEN OUTPATIENT RX, 02/13/18) Sertraline (Verified Allergy, Unknown, PER DR ROSEN OUTPATIENT RX, 02/13/18) Physical Exam Vital Signs Date Time Temp Pulse Resp B/P (MAP) Pulse Ox O2 Delivery O2 Flow Rate FiO2 02/13/18 14:36 73 18 121/73 97 02/13/18 13:37 72 16 109/70 97 Room Air 02/13/18 11:42 36.4 74 20 139/90 95 Room Air Physical Exam GENERAL: Sitting up in bed, alert, holding periumbilical region, well nourished , mild distress, non-toxic EYE EXAM: normal conjunctiva. OROPHARYNX: no exudate, no erythema, lips, buccal mucosa, and tongue normal and mucous membranes are moist NECK: supple, no nuchal rigidity, no adenopathy, non-tender LUNGS: Clear to auscultation. Normal chest wall mechanics HEART: no murmurs, S1 normal and S2 normal ABDOMEN: abdomen is mildly distended and minimally diffusely tender to the periumbilical tenderness. normo-active bowel sounds, no masses, no rebound or guarding. BACK: Back is symmetrical on inspection and there is no deformity, no midline tenderness, no CVA tenderness. SKIN: no rashes and no bruising UPPER EXTREMITIES: upper extremities are grossly normal. LOWER EXTREMITIES: No pitting edema. Calves are equal bilaterally. NEURO EXAM: Normal sensorium, cranial nerves II-XII grossly intact, normal speech, no gross weakness of arms, no gross weakness of legs. Medical Decision & Procedures ER Provider Diagnostic Interpretation: Radiology results as stated below per my review and the radiologist's interpretation: ABD/PELVIS IV CONTRAST ONLY CLINICAL HISTORY: 57 years-old Female presenting with diffuse abd pain and fullness, gastroparesis. TECHNIQUE: Multidetector CT of the abdomen and pelvis was performed after the administration of intravenous contrast. IV contrast: 93 mL of Optiray 320. A dose lowering technique was used consistent with the principles of ALARA (as low as reasonably achievable). COMPARISON: 05/17/2017. CT DOSE (mGy.cm): The estimated cumulative dose is 527.68 mGycm. FINDINGS: Glassware Selector topogram: Unremarkable. Lung bases: Minimal basilar opacities, likely atelectasis. Normal heart size. No pericardial or pleural effusion. Liver: Mildly enlarged measuring over 19 cm in maximal sagittal dimension. Density consistent with hepatic steatosis. No focal lesion. Patent hepatic vasculature. Biliary: No intrahepatic or extrahepatic biliary ductal dilatation. Normal gallbladder. Pancreas: Normal. Spleen: Mildly enlarged measuring 13.4 cm in maximal sagittal dimension. Adrenal glands: Normal. Kidneys and ureters: Normal. No hydronephrosis. Bladder: Normal. Pelvic organs: A septate uterus morphology suggested. Normal ovaries. Bowel: Moderate stool burden in the right and transverse colon. The appendix is normal. Fecal material in the distal small bowel suggest delayed transit. No bowel obstruction. Prominent duodenal diverticulum at the level of the redundant duodenum. Peritoneal cavity: No free fluid or intraperitoneal gas. Lymph nodes: No enlarged lymph nodes in the abdomen or pelvis. Vasculature: Aorta and IVC patent and normal in caliber. Abdominal wall: Several small fat-containing ventral midline hernias noted. No associated inflammatory change. Musculoskeletal: Normal. IMPRESSION: 1. Feces in the distal small bowel suggest delayed transit. No evidence of bowel obstruction. 2. Hepatomegaly with hepatic steatosis. 3. Splenomegaly, which is nonspecific and can be seen in the setting of portal hypertension or lymphoproliferative disorders. Laboratory Results 02/13/18 11:50 Red Blood Count 4.59, Mean Corpuscular Volume 88.7, Mean Corpuscular Hemoglobin 32.0, Mean Corpuscular Hemoglobin Concent 36.1, Mean Platelet Volume 9.3, Neutrophils (%) (Auto) 65.4, Lymphocytes (%) (Auto) 24.6, Monocytes (%) (Auto) 6.4, Eosinophils (%) (Auto) 3.2, Basophils (%) (Auto) 0.3, Neutrophils # (Auto) 4.93, Lymphocytes # (Auto) 1.85, Monocytes # (Auto) 0.48, Eosinophils # (Auto) 0.24, Basophils # (Auto) 0.02 02/13/18 11:50 Test 02/13/18 11:50 02/13/18 13:45 White Blood Count 7.53 K/uL (4.8-10.8) Red Blood Count 4.59 M/uL (4.2-5.4) Hemoglobin 14.7 g/dL (12.0-16.0) Hematocrit 40.7 % (37-47) Mean Corpuscular Volume 88.7 fL (80-100) Mean Corpuscular Hemoglobin 32.0 pg (25-34) Mean Corpuscular Hemoglobin Concent 36.1 g/dl (32-36) Platelet Count 217 K/uL (130-400) Mean Platelet Volume 9.3 fL (7.4-10.4) Neutrophils (%) (Auto) 65.4 % Lymphocytes (%) (Auto) 24.6 % Monocytes (%) (Auto) 6.4 % Eosinophils (%) (Auto) 3.2 % Basophils (%) (Auto) 0.3 % Neutrophils # (Auto) 4.93 K/uL (1.4-6.5) Lymphocytes # (Auto) 1.85 K/uL (1.2-3.4) Monocytes # (Auto) 0.48 K/uL (0.11-0.59) Eosinophils # (Auto) 0.24 K/uL (0-0.5) Basophils # (Auto) 0.02 K/uL (0-0.2) RDW Standard Deviation 41.3 fL (36.4-46.3) RDW Coefficient of Variation 12.9 % (11.5-14.5) Immature Granulocyte % (Auto) 0.1 % Immature Granulocyte # (Auto) 0.01 K/uL (0.00-0.02) Anion Gap 9.0 mmol/L (3-11) Est Creatinine Clear Calc Drug Dose 81.5 ml/min Estimated GFR () 111.1 Estimated GFR (Non- 95.9 BUN/Creatinine Ratio 19.5 (10-20) Calcium Level 9.4 mg/dl (8.5-10.1) Total Bilirubin 0.4 mg/dl (0.2-1) Direct Bilirubin 0.1 mg/dl (0-0.2) Aspartate Amino Transf (AST/SGOT) 27 U/L (15-37) Alanine Aminotransferase (ALT/SGPT) 47 U/L (12-78) Alkaline Phosphatase 93 U/L (45-117) Total Protein 7.7 gm/dl (6.4-8.2) Albumin 4.2 gm/dl (3.4-5.0) Lipase 116 U/L (73-393) Urine Color YELLOW Urine Appearance CLEAR (CLEAR) Urine pH 5.0 (4.5-7.5) Urine Specific [place] 1.025 (1.000-1.030) Urine Protein NEG (NEG) Urine Glucose (UA) NEG (NEG) Urine Ketones NEG (NEG) Urine Occult Blood NEG (NEG) Urine Nitrite NEG (NEG) Urine Bilirubin NEG (NEG) Urine Urobilinogen NEG (NEG) Urine Leukocyte Esterase NEG (NEG) Urine WBC (Auto) 0 /hpf (0-5) Urine RBC (Auto) 0-4 /hpf (0-4) Urine Hyaline Casts (Auto) 0 /lpf (0-5) Urine Epithelial Cells (Auto) 10-20 /lpf (0-5) Urine Bacteria (Auto) NEG (NEG) Urine Test NEG (NEG) Laboratory results per my review. Medications Administered Medications (Trade) Dose Ordered Sig/Mallorie Route Start Time Stop Time Status Last Admin Dose Admin Sodium Chloride 1,000 ml @ 999 mls/hr Q1H1M STAT IV 02/13/18 12:00 02/13/18 13:00 DC 02/13/18 12:00 999 MLS/HR Ondansetron HCl (Zofran Inj) 4 mg NOW STAT IV 02/13/18 12:00 02/13/18 12:02 DC 02/13/18 12:18 4 MG ED Course ED COURSE: Vital signs were reviewed and showed hypertensive vital signs situationally The patients medical record was reviewed The above diagnostic studies were performed and reviewed. ED treatments and interventions as stated above. 1154: The patient was evaluated in room B6. A complete history and physical examination was performed. 1200: Ordered Zofran 4 mg IV, Sodium Chloride 1000 mL @ 999 mL/hr IV. 1338: I checked on the patient at this time. She is feeling better. 1531: Upon reevaluation, the patient is resting in bed.I discussed my findings with the patient and she understands and agrees with the treatment plan. Based on the patients age, coexisting illnesses, exam and lab findings the decision to treat as an outpatient was made. The patient remained stable while under my care. The patient appeared well at the time of discharge. Medical Decision Differential diagnoses includes but is not limited to gastritis, peptic ulcer disease, GERD, gallbladder disease, pancreatitis, small bowel obstruction, acute coronary syndrome, pericarditis, ischemic bowel, irritable bowel disease, irritable bowel syndrome, appendicitis, diverticulitis, malignancy, hernia, urinary tract infection, torsion, perforation, trauma, infectious. Patient is a 57-year-old female who presents the ER the past medical history of gastroparesis for epigastric abdominal pain started following eating broccoli. She notes that she gets this fairly consistently over the past 3 years and has been getting worse. She feels very full and bloated. Patient was distended and slightly tender. CBC along with BMP, LFTs, bilirubin lipase is unremarkable. UA was negative. Cranial she was negative. CT of the abdomen pelvis shows no obstruction or obvious infection. It does suggest slow gastric motility. Did attempt to call her PCP but she no longer practices with her group. Recommended following up as an outpatient. She was given fluids and IV Zofran. She did feel significantly better. She was discharged follow-up with PCP as an out patient. Of note she also declined follow-up with GI as she notes it was too expensive. Discussed with Pt concerning signs and symptoms to watch out for. Pt was instructed to follow up with their PCP and discussed with the patient their option to return to the ED at anytime for persistent or worsening symptoms. The appropriate anticipatory guidance and out-patient management, including indications for return to the emergency department, were explained at length to the patient and understood. Medication Reconcilliation Current Medication List: was personally reviewed by me Blood Pressure Screening Patient's blood pressure: Normal blood pressure Impression Primary Impression: Gastroparesis Additional Impression: Abdominal pain Scribe Attestation The scribe's documentation has been prepared under my direction and personally reviewed by me in its entirety. I confirm that the note above accurately reflects all work, treatment, procedures, and medical decision making performed by me. Departure Information Dispostion Home / Self-Care Referrals Herb Rosen M.D. (PCP) Forms Call Back Authorization, HOME CARE DOCUMENTATION FORM, IMPORTANT VISIT INFORMATION Patient Instructions My [facility] Additional Instructions Please follow up with your primary care doctor with in the next 24 hours. Any worsening of your symptoms, please return to the ED immediately. This includes any fevers greater than 100.4, worsening pain, chest pain, shortness breath, persistent nausea, vomiting, unable to eat or drink, or any other concerning signs or symptoms from your standpoint. Please make sure you follow-up with your PCP as stated. Problem Qualifiers Additional Impression: Abdominal pain Abdominal location: unspecified location Qualified Codes: R10.9 - Unspecified abdominal pain
== END 2018-02-13 14:37 | disposition home or self-care (01) ==
LOC: C.EDB 11:41
DX: K31.84 Gastroparesis (principal); R10.13 Epigastric pain; E11.9 Type 2 diabetes mellitus without complications; M54.12 Radiculopathy, cervical region; M54.5 Low back pain; Z80.9 Family history of malignant neoplasm, unspecified; Z79.82 Long term (current) use of aspirin; Z79.899 Other long term (current) drug therapy; Z88.8 Allergy status to other drugs, medicaments and biological substances

== ENCOUNTER → 2018-02-23 | Outpatient (CLI) | payer OTHER ==
[~2018-02-23] MED LIST changes: +ASPI81TA28 PO; -CTP/1 PO; +GLC/500 PO; -POLY335019 PO; -SENN-65 PO
[2018-02-23 10:05] LABS: HEMOGLOBIN A1C 6.3 % (4.5-5.6)
== END | disposition home or self-care (01) ==
LOC: C.LAB 09:19
PROVIDERS: ATTEND Family Medicine
DX: E11.9 Type 2 diabetes mellitus without complications (principal)

== ENCOUNTER 2018-03-30 08:38 | Observation (INO) | payer OTHER ==
[~2018-03-30] VITALS: Ht 152.4 cm; Wt 74.3 kg
[2018-03-30] MEDS ORDERED: ACETAMINOPHEN 500 MG TAB PO STA (08:41)
[2018-03-30] MEDS ORDERED: ASPIRIN 81 MG CHEW PO STA (08:41)
[2018-03-30] MEDS ORDERED: NITROGLYCERIN 0.4 MG SL PER TAB CHARGE SL PRN ×2 (08:45→10:45)
--- NOTE | 2018-03-30 08:45 | EMERGENCY ROOM VISIT NOTE ---
History Report prepared by Edmund: Johnny Ortiz Under the Supervision of: Dr. Lester Ghosh D.O. First contact with patient: 08:39 Stated Complaint: CHEST PAIN History of Present Illness The patient is a 57 year old female who presents to the Emergency Room with complaints of intermittent chest pain that began this morning at 0650, 2 hours ago. The patient states that she initially felt pain in the left side of her chest and subsequently in her neck and left arm. She describes a "heaviness" in her chest and a "dull" pain in her left arm and neck. She denies anything improving or worsening her symptoms. She denies any shortness of breath. The patient was admitted for similar symptoms in the past, but did not have a catheterization performed. Source of History: patient Onset: 2 hours ago Position: chest Quality: dull, other (Heaviness) Timing: intermittent Modifying Factors (Worsening): other (N/A) Modifying Factors (Relieving): other (N/A) Associated Symptoms: + neck pain Note: Left arm pain Review of Systems See HPI for pertinent positives & negatives. A total of 10 systems reviewed and were otherwise negative. Past Medical & Surgical Medical Problems: (1) Cervical radiculopathy (2) Chest pain (3) Lightheaded (4) Low back pain (5) Periumbilical hernia Surgical Problems: (1) History of tubal ligation Family History FH: cancer Social History Smoking Status: Never Smoker Alcohol Use: none Drug Use: none Marital Status: , in relationship Housing Status: lives with family Occupation Status: employed Current/Historical Medications Scheduled Aspirin (Aspirin Ec), 81 MG PO DAILY Fluvoxamine Maleate (Luvox), 150 MG PO HS Levothyroxine Sodium (Synthroid), 112 MCG PO DAILY Metformin Hcl (Glucophage), 500 MG PO BID Ropinirole Hydrochloride (Requip), 2 MG PO BID Allergies Coded Allergies: Buspirone (Verified Allergy, Unknown, PER DR ROSEN OUTPATIENT RX, 03/30/18) Nefazodone (Verified Allergy, Unknown, PER DR ROSEN OUTPATIENT RX, 03/30/18 ) Paroxetine (Verified Allergy, Unknown, PER DR ROSEN OUTPATIENT RX, 03/30/18 ) Sertraline (Verified Allergy, Unknown, PER DR ROSEN OUTPATIENT RX, 03/30/18 ) Physical Exam Vital Signs Date Time Temp Pulse Resp B/P (MAP) Pulse Ox O2 Delivery O2 Flow Rate FiO2 03/30/18 09:35 57 18 120/76 96 Room Air 03/30/18 09:19 66 18 117/76 97 Room Air 03/30/18 09:05 72 18 149/90 97 Room Air 03/30/18 08:53 95 Room Air 03/30/18 08:53 36.5 90 20 172/95 95 Room Air 03/30/18 08:53 95 Room Air 03/30/18 08:53 95 Room Air 03/30/18 08:43 72 Physical Exam GENERAL: Patient is awake, alert, and in no acute distress. Very anxious appearing and uncomfortable. EYES: The conjunctivae are clear. The pupils are round and reactive. EARS, NOSE, MOUTH AND THROAT: The nose is without any evidence of any deformity. Mucous membranes are moist tongue is midline NECK: The neck is nontender and supple. RESPIRATORY: Normal respiratory effort is noted there is no evidence of wheezing rhonchi or rales CARDIOVASCULAR: Regular rate and rhythm noted there no murmurs rubs or gallops normal S1 normal S2 GASTROINTESTINAL: The abdomen is soft. Bowel sounds are present in all quadrants. Abdomen is nontender MUSCULOSKELETAL/EXTREMITIES: There is no evidence of gross deformity full range of motion is noted in the hips and shoulders SKIN: There is no obvious evidence of any rash. There are no petechiae, pallor or cyanosis noted. NEUROLOGIC: Patient is awake alert and oriented x3 strength is symmetric patellar reflexes are 2+ bilaterally Medical Decision & Procedures ER Provider Diagnostic Interpretation: Radiology results as stated below per my review and radiologist interpretation: CHEST ONE VIEW PORTABLE HISTORY: EVALUATE RESPIRATORY DISTRESS.DYSPNEA COMPARISON: Chest 01/12/2016. FINDINGS: No pleural effusions. No pneumothorax. The heart is normal in size. Left basilar linear densities likely represent scarring. This remains unchanged. No new focal lung consolidations to suggest pneumonia. No evidence for pulmonary edema. S-shaped scoliosis of the thoracic spine. IMPRESSION: No significant change compared to the prior study. No acute process. Electronically signed by: Nile Christy M.D. 03/30/2018 8:55 AM Dictated Date/Time: 03/30/2018 8:54 AM Laboratory Results 03/30/18 08:45 Red Blood Count 4.38, Mean Corpuscular Volume 88.4, Mean Corpuscular Hemoglobin 30.8, Mean Corpuscular Hemoglobin Concent 34.9, Mean Platelet Volume 8.8, Neutrophils (%) (Auto) 55.0, Lymphocytes (%) (Auto) 33.5, Monocytes (%) (Auto) 7.9, Eosinophils (%) (Auto) 3.0, Basophils (%) (Auto) 0.4, Neutrophils # (Auto) 3.13, Lymphocytes # (Auto) 1.90, Monocytes # (Auto) 0.45, Eosinophils # (Auto) 0.17, Basophils # (Auto) 0.02 03/30/18 08:45 Test 03/30/18 08:45 03/30/18 08:53 03/30/18 09:30 White Blood Count 5.68 K/uL (4.8-10.8) Red Blood Count 4.38 M/uL (4.2-5.4) Hemoglobin 13.5 g/dL (12.0-16.0) Hematocrit 38.7 % (37-47) Mean Corpuscular Volume 88.4 fL (80-100) Mean Corpuscular Hemoglobin 30.8 pg (25-34) Mean Corpuscular Hemoglobin Concent 34.9 g/dl (32-36) Platelet Count 219 K/uL (130-400) Mean Platelet Volume 8.8 fL (7.4-10.4) Neutrophils (%) (Auto) 55.0 % Lymphocytes (%) (Auto) 33.5 % Monocytes (%) (Auto) 7.9 % Eosinophils (%) (Auto) 3.0 % Basophils (%) (Auto) 0.4 % Neutrophils # (Auto) 3.13 K/uL (1.4-6.5) Lymphocytes # (Auto) 1.90 K/uL (1.2-3.4) Monocytes # (Auto) 0.45 K/uL (0.11-0.59) Eosinophils # (Auto) 0.17 K/uL (0-0.5) Basophils # (Auto) 0.02 K/uL (0-0.2) RDW Standard Deviation 42.6 fL (36.4-46.3) RDW Coefficient of Variation 13.2 % (11.5-14.5) Immature Granulocyte % (Auto) 0.2 % Immature Granulocyte # (Auto) 0.01 K/uL (0.00-0.02) Prothrombin Time 9.8 SECONDS (9.0-12.0) Prothromb Time International Ratio 0.9 (0.9-1.1) Activated Partial Thromboplast Time 25.7 SECONDS (21.0-31.0) Partial Thromboplastin Ratio 1.0 Anion Gap 6.0 mmol/L (3-11) Est Creatinine Clear Calc Drug Dose 71.5 ml/min Estimated GFR () 92.0 Estimated GFR (Non- 79.4 BUN/Creatinine Ratio 16.3 (10-20) Calcium Level 9.1 mg/dl (8.5-10.1) Magnesium Level 1.9 mg/dl (1.8-2.4) Total Bilirubin 0.4 mg/dl (0.2-1) Aspartate Amino Transf (AST/SGOT) 31 U/L (15-37) Alanine Aminotransferase (ALT/SGPT) 52 U/L (12-78) Alkaline Phosphatase 76 U/L (45-117) Total Creatine Kinase 120 U/L (26-192) Creatine Kinase MB 2.0 ng/ml (0.5-3.6) Creatine Kinase MB Ratio 1.7 (0-3.0) Troponin I < 0.015 ng/ml (0-0.045) Total Protein 7.5 gm/dl (6.4-8.2) Albumin 4.0 gm/dl (3.4-5.0) Globulin 3.5 gm/dl (2.5-4.0) Albumin/Globulin Ratio 1.2 (0.9-2) Bedside D-Dimer 95 ng/mlFEU (0-450) Urine Color [place] YELLOW Urine Appearance CLEAR (CLEAR) Urine pH 5.0 (4.5-7.5) Urine Specific [place] 1.020 (1.000-1.030) Urine Protein NEG (NEG) Urine Glucose (UA) NEG (NEG) Urine Ketones NEG (NEG) Urine Occult Blood NEG (NEG) Urine Nitrite NEG (NEG) Urine Bilirubin NEG (NEG) Urine Urobilinogen NEG (NEG) Urine Leukocyte Esterase NEG (NEG) Laboratory results per my review. Medications Administered Medications (Trade) Dose Ordered Sig/Mallorie Route Start Time Stop Time Status Last Admin Dose Admin Nitroglycerin (Nitrostat Tab) 0.4 mg Q5M PRN SL 03/30/18 08:45 03/30/18 11:04 DC 03/30/18 09:02 0.4 MG Aspirin (Aspirin Chew) 324 mg NOW STAT PO 03/30/18 08:41 03/30/18 08:43 DC 03/30/18 09:04 324 MG Acetaminophen (Tylenol Tab) 1,000 mg NOW STAT PO 03/30/18 08:41 03/30/18 08:43 DC 03/30/18 09:03 1,000 MG Nitroglycerin (Nitrostat Tab) 0.4 mg UD PRN SL 03/30/18 10:45 04/29/18 10:44 03/30/18 13:11 0.4 MG ECG Per My Interpretation Indication: chest pain Rate (beats per minute): 81 Rhythm: normal sinus Findings: other (T-wave flattening noted, no PVCs) Comparison ECG Date: 01/13/2016 Change: no significant change ED Course 0838: The patient was evaluated in room B2. A complete history and physical examination were performed. 0841: Ordered Tylenol 1000 mg PO, Aspirin 324 mg PO. 1011: I discussed the case with Dr. Tori Sanz [facility]. She will evaluate the patient for further treatment. Medical Decision Differential diagnosis: Etiologies such as cardiac ischemia, aortic dissection, pulmonary embolism, pneumonia, pneumothorax, musculoskeletal, infections, pericarditis, myocarditis , esophageal rupture, gastrointestinal, as well as others were entertained. Nursing notes reviewed. The patient is a 57-year-old female who presented to the emergency department for an evaluation of chest discomfort. The patient noted yesterday that she was having exertional chest discomfort while pushing a lawnmower. She started having chest pain while she was at work today. 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 She has had similar symptoms in the past. She was treated with aspirin and nitroglycerin with good relief of her symptoms. I discussed patient's laboratory and radiographic studies with her. I also discussed the limitations of the emergency department workup for chest pain with her. Given her past medical history and exertional symptoms I discussed her case with the on-call [facility] [place] hospitalist. They have agreed to evaluate the patient in the emergency department for further management and disposition. Medication Reconcilliation Current Medication List: was personally reviewed by me Kaur Pressure Screening Patient's blood pressure: Elevated blood pressure Referred to hospitalist. Consults Time Called: 1005 Consulting Physician: Dr. Tori Sanz Hospitalist Returned Call: 1011 I discussed the case with Dr. Tori Sanz Hospitalist. She will evaluate the patient for further treatment. Impression Primary Impression: Exertional chest pain Scribe Attestation The scribe's documentation has been prepared under my direction and personally reviewed by me in its entirety. I confirm that the note above accurately reflects all work, treatment, procedures, and medical decision making performed by me. Departure Information Dispostion Being Evaluated By Hospitalist Referrals Herb Rosen M.D. (PCP)
[2018-03-30 08:56] LABS: BASO % 0.4 %; BASO ABS # 0.02 K/uL (0-0.2); EOS ABS # 0.17 K/uL (0-0.5); HEMATOCRIT 38.7 % (37-47); HEMOGLOBIN 13.5 g/dL (12.0-16.0); IG# 0.01 K/uL (0.00-0.02); LYMPH % 33.5 %; MEAN CELL VOLUME 88.4 fL (80-100); MEAN CORPUSCULAR HEMOGLOBIN 30.8 pg (25-34); MEAN CORPUSCULAR HGB CONC 34.9 g/dl (32-36); MEAN PLATELET VOLUME 8.8 fL (7.4-10.4); MONO % 7.9 %; MONO ABS # 0.45 K/uL (0.11-0.59); NEUT ABS # 3.13 K/uL (1.4-6.5); PLATELET COUNT 219 K/uL (130-400); RED CELL DISTRIBUTION WIDTH CV 13.2 % (11.5-14.5); RED CELL DISTRIBUTION WIDTH SD 42.6 fL (36.4-46.3); WHITE BLOOD COUNT 5.68 K/uL (4.8-10.8)
--- NOTE | 2018-03-30 08:56 | DIAGNOSTIC IMAGING REPORT ---
CHEST ONE VIEW PORTABLE HISTORY: EVALUATE RESPIRATORY DISTRESS.DYSPNEA COMPARISON: Chest 01/12/2016. FINDINGS: No pleural effusions. No pneumothorax. The heart is normal in size. Left basilar linear densities likely represent scarring. This remains unchanged. No new focal lung consolidations to suggest pneumonia. No evidence for pulmonary edema. S-shaped scoliosis of the thoracic spine. IMPRESSION: No significant change compared to the prior study. No acute process. Electronically signed by: Nile Christy M.D. 03/30/2018 8:55 AM Dictated Date/Time: 03/30/2018 8:54 AM
[2018-03-30 09:05] LABS: INR 0.9 (0.9-1.1); PTT PATIENT 25.7 SECONDS (21.0-31.0)
[2018-03-30 09:20] LABS: ALKALINE PHOSPHATASE 76 U/L (45-117); ALT/SGPT 52 U/L (12-78); AST/SGOT 31 U/L (15-37); BLOOD UREA NITROGEN 14 mg/dl (7-18); CALCIUM 9.1 mg/dl (8.5-10.1); CARBON DIOXIDE 28 mmol/L (21-32); CREATININE 0.83 mg/dl (0.60-1.20); GLUCOSE 119 mg/dl (70-99); POTASSIUM 3.9 mmol/L (3.5-5.1); SODIUM 138 mmol/L (136-145); TOTAL PROTEIN 7.5 gm/dl (6.4-8.2)
[2018-03-30] MEDS ORDERED: DEXTROSE 50% 50 ML SYR IV PRN (10:45)
[2018-03-30] MEDS ORDERED: DC ALL PREVIOUSLY ORDERED DIABETES MEDS ONE (10:45)
[2018-03-30] MEDS ORDERED: GLUCOSE 10 TABS/TUBE PO PRN (10:45)
[2018-03-30] MEDS ORDERED: GLUCAGON FOR INJ 1 MG VIAL SQ PRN (10:45)
[2018-03-30] MEDS ORDERED: CARBOHYDRATES FOR HYPOGLYCEMIA PO PRN (10:45)
[2018-03-30] MEDS ORDERED: GLUCOSE 40% GEL 15 GM TUBE PO PRN (10:45)
[2018-03-30] MEDS ORDERED: ONDANSETRON INJ 2 MG/ML 2 ML VIAL IV PRN (10:45)
[2018-03-30 11:09] VITALS: O2SAT 96; Ht 152.4 cm; Wt 74.3 kg
--- NOTE | 2018-03-30 11:17 | History and Physical ---
History & Physical Date & Time of Service: March 30, 2018 at 10:51 Chief Complaint: Chest Pain Primary Care Physician: Herb Rosen M.D. History of Present Illness Source: patient Ms. Crawford is a pleasant 57yo C female with history of diabetes, hypertension presenting today with chest pain. 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 She felt warm at the time but no diaphoresis/nausea/palpitations or dizziness. The sharp pain was followed by a chest pressure and heaviness that lasted approximately 10 minutes before resolving on its own. She had a recurrence of the chest pain one hour later, brief sharp pain that was followed by chest heaviness/pressure. She is now complaining only of aching in the left arm. Patient states that she is fairly active. She rides a stationary bike 3 times per week. She does endorse some occasional chest heaviness and aching in her legs after approximately 5 minutes of riding the bike that is relieved with rest. She had some shortness of breath last night with mowing the lawn. She was seen in January 2016 with similar presentation. At that time there were no EKG changes, troponin remained negative. She had a stress echo performed which was negative. No additional complaints at this time. ER Course: ASA 324mg, Tylenol 1000 mg, Nitroglycerine 0.4mg Past Medical/Surgical History Medical Problems: (1) Abdominal pain (2) Abdominal pain (3) Anemia (4) Anxiety (5) Cervical radiculopathy (6) Chest pain (7) Constipation (8) DUB (dysfunctional uterine bleeding) (9) Endometrial polyp (10) Gastroparesis (11) Lightheaded (12) Low back pain (13) Low back pain (14) Lower abdominal pain (15) Lower abdominal pain (16) Nausea (17) Ovarian cyst (18) Pain in scapula (19) Periumbilical hernia (20) Precordial chest pain (21) Restless leg Surgical Problems: (1) History of tubal ligation Family History FH: cancer No family history of CAD Social History Smoking Status: Never Smoker Smokeless Tobacco Use: No Drug Use: none Marital Status: , in relationship Housing status: lives with significant other Occupational Status: employed Allergies Coded Allergies: Buspirone (Verified Allergy, Unknown, PER DR ROSEN OUTPATIENT RX, 03/30/18) Nefazodone (Verified Allergy, Unknown, PER DR ROSEN OUTPATIENT RX, 03/30/18 ) Paroxetine (Verified Allergy, Unknown, PER DR ROSEN OUTPATIENT RX, 03/30/18 ) Sertraline (Verified Allergy, Unknown, PER DR ROSEN OUTPATIENT RX, 03/30/18 ) Home Medications Scheduled Aspirin (Aspirin Ec), 81 MG PO DAILY Fluvoxamine Maleate (Luvox), 150 MG PO HS Levothyroxine Sodium (Synthroid), 112 MCG PO DAILY Metformin Hcl (Glucophage), 500 MG PO BID Ropinirole Hydrochloride (Requip), 2 MG PO BID Review of Systems Constitutional: No fever, No chills, No sweats Eyes: No worsening of vision ENT: No sore throat, No trouble swallowing Respiratory: + dyspnea on exertion, No cough, No sputum, No wheezing, No shortness of breath Cardiovascular: + orthopnea, No chest pain, No edema, No palpitations Abdomen: + pain, + nausea, + vomiting, + diarrhea, + constipation Musculoskeletal: No muscle pain, No calf pain Genitourinary - Female: No dysuria Hematologic / Lymphatic: No abnormal bleeding/bruising Integumentary: No rash Physical Exam Vital Signs Date Time Temp Pulse Resp B/P (MAP) Pulse Ox O2 Delivery O2 Flow Rate FiO2 03/30/18 09:35 57 18 120/76 96 Room Air 03/30/18 09:19 66 18 117/76 97 Room Air 03/30/18 09:05 72 18 149/90 97 Room Air 03/30/18 08:53 95 Room Air 03/30/18 08:53 36.5 90 20 172/95 95 Room Air 03/30/18 08:53 95 Room Air 03/30/18 08:53 95 Room Air 03/30/18 08:43 72 General: patient resting comfortably, NAD Skin: warm, dry, intact, no rashes or lesions HEENT: NC/AT, PERRL, anicteric, conjunctiva without injection, MMM, no JVD, no thyromegaly, neck supple Heart: +S1/S2, regular, no m/r/g, no carotid bruits, palpable pulses 2+ in UE/ LE bilaterally Lungs: equal air entry bilaterally, no rales/rhonchi or wheezes Abdomen: soft, NT/ND, no masses Ext: warm, well perfused, 2+ pulses, trace pitting edema in bilateral LE to below knee, right wrist brace in place Neuro: grossly nonfocal Diagnostics Laboratory Results Results Past 24 Hours Test 03/30/18 08:45 03/30/18 08:53 03/30/18 09:30 Range/Units White Blood Count 5.68 4.8-10.8 K/uL Red Blood Count 4.38 4.2-5.4 M/uL Hemoglobin 13.5 12.0-16.0 g/dL Hematocrit 38.7 37-47 % Mean Corpuscular Volume 88.4 80-100 fL Mean Corpuscular Hemoglobin 30.8 25-34 pg Mean Corpuscular Hemoglobin Concent 34.9 32-36 g/dl Platelet Count 219 130-400 K/uL Mean Platelet Volume 8.8 7.4-10.4 fL Neutrophils (%) (Auto) 55.0 % Lymphocytes (%) (Auto) 33.5 % Monocytes (%) (Auto) 7.9 % Eosinophils (%) (Auto) 3.0 % Basophils (%) (Auto) 0.4 % Neutrophils # (Auto) 3.13 1.4-6.5 K/uL Lymphocytes # (Auto) 1.90 1.2-3.4 K/uL Monocytes # (Auto) 0.45 0.11-0.59 K/uL Eosinophils # (Auto) 0.17 0-0.5 K/uL Basophils # (Auto) 0.02 0-0.2 K/uL RDW Standard Deviation 42.6 36.4-46.3 fL RDW Coefficient of Variation 13.2 11.5-14.5 % Immature Granulocyte % (Auto) 0.2 % Immature Granulocyte # (Auto) 0.01 0.00-0.02 K/uL Prothrombin Time 9.8 9.0-12.0 SECONDS Prothromb Time International Ratio 0.9 0.9-1.1 Activated Partial Thromboplast Time 25.7 21.0-31.0 SECONDS Partial Thromboplastin Ratio 1.0 Sodium Level 138 136-145 mmol/L Potassium Level 3.9 3.5-5.1 mmol/L Chloride Level 104 98-107 mmol/L Carbon Dioxide Level 28 21-32 mmol/L Anion Gap 6.0 3-11 mmol/L Blood Urea Nitrogen 14 7-18 mg/dl Creatinine 0.83 0.60-1.20 mg/dl Est Creatinine Clear Calc Drug Dose 71.5 ml/min Estimated GFR () 92.0 Estimated GFR (Non- 79.4 BUN/Creatinine Ratio 16.3 10-20 Random Glucose 119 70-99 mg/dl Calcium Level 9.1 8.5-10.1 mg/dl Magnesium Level 1.9 1.8-2.4 mg/dl Total Bilirubin 0.4 0.2-1 mg/dl Aspartate Amino Transf (AST/SGOT) 31 15-37 U/L Alanine Aminotransferase (ALT/SGPT) 52 12-78 U/L Alkaline Phosphatase 76 45-117 U/L Total Creatine Kinase 120 26-192 U/L Creatine Kinase MB 2.0 0.5-3.6 ng/ml Creatine Kinase MB Ratio 1.7 0-3.0 Troponin I < 0.015 0-0.045 ng/ml Total Protein 7.5 6.4-8.2 gm/dl Albumin 4.0 3.4-5.0 gm/dl Globulin 3.5 2.5-4.0 gm/dl Albumin/Globulin Ratio 1.2 0.9-2 Bedside D-Dimer 95 0-450 ng/mlFEU Urine Color DK YELLOW Urine Appearance CLEAR CLEAR Urine pH 5.0 4.5-7.5 Urine Specific [place] 1.020 1.000-1.030 Urine Protein NEG NEG Urine Glucose (UA) NEG NEG Urine Ketones NEG NEG Urine Occult Blood NEG NEG Urine Nitrite NEG NEG Urine Bilirubin NEG NEG Urine Urobilinogen NEG NEG Urine Leukocyte Esterase NEG NEG Diagnostic Radiology CHEST ONE VIEW PORTABLE HISTORY: EVALUATE RESPIRATORY DISTRESS.DYSPNEA COMPARISON: Chest 01/12/2016. FINDINGS: No pleural effusions. No pneumothorax. The heart is normal in size. Left basilar linear densities likely represent scarring. This remains unchanged. No new focal lung consolidations to suggest pneumonia. No evidence for pulmonary edema. S-shaped scoliosis of the thoracic spine. IMPRESSION: No significant change compared to the prior study. No acute process. Electronically signed by: Nile Christy M.D. 03/30/2018 8:55 AM Dictated Date/Time: 03/30/2018 8:54 AM EKG Normal sinus rhythm Normal ECG When compared with ECG of 13-JAN-2016 07:08, Nonspecific T wave abnormality, improved in Lateral leads Impression Assessment and Plan 57yo C female with diabetes, HTN presenting with chest pain 1. Chest pain - patient presently complaining of heaviness in the left arm. EKG with nonspecific T wave changes in lateral leads, similar to prior. Troponin x 1 negative. CXR and labs unremarkable. Patient HD stable. Some concern for quality of pain (pressure/heaviness) as well as complaints of decreased exercise tolerance and SOB as described when using the bike and mowing the lawn - ?anginal equivalent in female diabetic. -Observation with telemetry -Troponin q 6 hours x 4 -Continue ASA 81mg po daily -Check lipids (most recent mhenknquqda=[id number], TCY=020) 2. Diabetes - well controlled with Metformin. CB=739 today. HgAIC 02/23/18 = 6.3 -Hold Metformin -ISS 3. Hypertension - patient is not currently taking antihypertensive agents. BP elevated on initial arrival, at goal now 120/76 -Continue to monitor 4. Hypothyroidism - stable -Continue Synthroid 5. F/E/N - [place]. Electrolytes within normal limits. Continue to monitor. AHA/Diabetic diet as tolerated 6. Code - Full per discussion with patient 7. Dispo - Observation with telemetry for CP rule out ACS Resuscitation Status FULL VTE Prophylaxis Will order VTE Prophylaxis: Yes
[2018-03-30 11:43] VITALS: BP 147/84; PULSE 60; TEMP 36.5; O2SAT 98
[2018-03-30] MEDS: INSULIN ASPART 100 UNITS/ML 3 ML PEN SC SCH ×3 (13:04→20:39)
[2018-03-30] MEDS: ENOXAPARIN 40 MG/0.4 ML SYR SC SCH (13:05)
[2018-03-30] MEDS ORDERED: IV FLUIDS COMPLETED PRN (14:00)
[2018-03-30 15:11] VITALS: BP 110/70; PULSE 58; TEMP 36.9; O2SAT 96
[2018-03-30] MEDS: ACETAMINOPHEN 325 MG TAB PO PRN ×2 (16:50→22:15)
[2018-03-30 19:51] VITALS: BP 148/82; PULSE 61; TEMP 36.6; O2SAT 95
[2018-03-30] MEDS ORDERED: TRAMADOL HCL 50 MG TAB PO STA (20:19)
[2018-03-30] MEDS: ROPINIROLE HCL 1 MG TAB PO SCH (20:39)
--- NOTE | 2018-03-30 20:56 | Cardiology Consultation ---
Cardiology Consultation Date of Consultation: March 30, 2018. Requesting Physician: Dr. Rios Attending Physician: Dr. Slater Reason for Consultation: Chest pain Pt evaluation today including: conversation w/ patient, conversation w/ family , physical exam, chart review, lab review, review of studies, review of inpatient medication list History of Present Illness Ms. Crawford is a pleasant 57-year-old female with a history significant for hypertension, prediabetes, and gastroparesis. She was admitted for chest pain. 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 She developed a left-sided chest discomfort described as sharp, stabbing, and also a heaviness. There is no radiation of the pain and she denies associated diaphoresis or shortness of breath. Symptoms lasted only a few seconds before spontaneously resolving. She then had another episode, which once again resolved spontaneously within a few seconds. She states that she then became a patient in the emergency department and was given nitroglycerin but had no chest discomfort when the nitroglycerin was given. Since admitted she has had a few more episodes, approximately 2:00 p.m., and 4 or 5 episodes near the 4:00 p.m. hour. These occurred while laying in bed. They all resolved within a few seconds. She denies having chest pain before this. She denies syncope, near-syncope, palpitations, edema, orthopnea, or bleeding. Currently she has a headache. She states that she gets headaches from time to time but she feels worse today. She also feels hot all over and developed abdominal discomfort last night with loose stools x2. She currently is complaining of right lower quadrant pain and nausea. She communicated this with nursing staff, who administered medication to help improve her symptoms. She denies vomiting, fever, or other symptom. She admits that she does not exercise but lives an active lifestyle. Review of systems: As above. Review of systems otherwise negative/ unremarkable. Family History FH: cancer No known premature CAD. Social History Smoking Status: Never Smoker History of Alcohol Use: No She denies tobacco, alcohol, or drug abuse. She is . Her fiancee is present at the bedside. She has 3 adult children. She has 8 grandchildren. 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 All Other Systems: Reviewed and Negative Allergies Coded Allergies: Buspirone (Verified Allergy, Unknown, PER DR PEÑA OUTPATIENT RX, 03/30/18) Nefazodone (Verified Allergy, Unknown, PER DR PEÑA OUTPATIENT RX, 03/30/18 ) Paroxetine (Verified Allergy, Unknown, PER DR PEÑA OUTPATIENT RX, 03/30/18 ) Sertraline (Verified Allergy, Unknown, PER DR PEÑA OUTPATIENT RX, 03/30/18 ) Medications Reported Home Medications Medications Dose Route/Sig Max Daily Dose Days Date Category Dose Instructions Aspirin Ec (Aspirin) 81 Mg Tab 81 Mg PO DAILY 02/13/18 Reported Glucophage (Metformin Hcl) 500 Mg Tab 500 Mg PO BID 02/13/18 Reported Synthroid (Levothyroxine Sodium) 112 Mcg Tab 112 Mcg PO DAILY 05/17/17 Reported Requip (Ropinirole Hydrochloride) 1 Mg Tab 2 Mg PO BID 10/25/14 Reported 1800 AND HS Luvox (Fluvoxamine Maleate) 100 Mg Tab 150 Mg PO HS 11/19/13 Reported Current Inpatient Medications Medications (Trade) Dose Ordered Sig/Mallorie Route Start Time Stop Time Status Last Admin Dose Admin Enoxaparin Sodium (Lovenox Inj) 40 mg DAILY SC 03/30/18 12:30 04/29/18 12:29 03/30/18 13:05 40 MG Acetaminophen (Tylenol Tab) 650 mg Q4H PRN PO 03/30/18 10:45 04/29/18 10:44 03/30/18 16:50 650 MG Ondansetron HCl (Zofran Inj) 4 mg Q6H PRN IV 03/30/18 10:45 04/29/18 10:44 03/30/18 19:17 4 MG Nitroglycerin (Nitrostat Tab) 0.4 mg UD PRN SL 03/30/18 10:45 04/29/18 10:44 03/30/18 13:11 0.4 MG Aspirin (Ecotrin Tab) 81 mg QAM PO 03/31/18 09:00 04/30/18 08:59 Fluvoxamine Maleate (Luvox Tab) 150 mg HS PO 03/30/18 21:00 04/29/18 20:59 03/30/18 20:38 150 MG Levothyroxine Sodium (Synthroid Tab) 112 mcg DAILYBB PO 03/31/18 06:30 04/30/18 06:29 Ropinirole HCl (Requip Tab) 2 mg BID PO 03/30/18 21:00 04/29/18 20:59 03/30/18 20:39 2 MG Insulin Aspart (novoLOG ASPART) SLIDING SCALE If C... ACHS SC 03/30/18 11:00 04/29/18 10:59 03/30/18 16:52 6 UNITS Glucose (Glucose 40% Gel) 15-30 GRAMS 15 GRAMS... UD PRN PO 03/30/18 10:45 04/29/18 10:44 Glucose (Glucose Chew Tab) 4-8 Tablets 4 Tabl... UD PRN PO 03/30/18 10:45 04/29/18 10:44 Dextrose (Dextrose 50% 50ML Syringe) 25-50ML 25ML FOR ... UD PRN IV 03/30/18 10:45 04/29/18 10:44 Glucagon (Glucagon Inj) 1 mg UD PRN SQ 03/30/18 10:45 04/29/18 10:44 Carbohydrates (Carbohydrates For Hypoglycemia) 15-30 GRAMS 15 grams if BSG 54-69... UD PRN PO 03/30/18 10:45 04/29/18 10:44 Miscellaneous (Iv Fluids Completed) 1 ea PRN PRN N/A 03/30/18 14:00 03/30/19 13:59 Physical Exam Vital Signs Past 12 Hours Date Time Temp Pulse Resp B/P (MAP) Pulse Ox O2 Delivery O2 Flow Rate FiO2 03/30/18 19:51 36.6 61 18 148/82 (104) 95 Room Air 03/30/18 16:10 Room Air 03/30/18 15:11 36.9 58 20 110/70 (83) 96 Room Air 03/30/18 11:43 36.5 60 18 147/84 (105) 98 Room Air 03/30/18 11:43 98 Room Air 03/30/18 11:29 67 18 141/80 95 Room Air 03/30/18 11:09 96 Room Air 03/30/18 10:58 61 03/30/18 09:35 57 18 120/76 96 Room Air 03/30/18 09:19 66 18 117/76 97 Room Air 03/30/18 09:05 72 18 149/90 97 Room Air 03/30/18 08:53 95 Room Air 03/30/18 08:53 36.5 90 20 172/95 95 Room Air 03/30/18 08:53 95 Room Air 03/30/18 08:53 95 Room Air Gen.: No acute distress. Alert and oriented. HEENT: Anicteric sclera. Neck: No JVD. No bruits. Normal carotid upstrokes bilaterally. Cardiac: PMI was nonpalpable . No ventricular heave. Regular rate and rhythm. Normal S1-S2. No murmurs, rubs, or gallops. Pulmonary: Clear to auscultation bilaterally without wheezes, rales, or rhonchi. Abdomen: Soft, nontender (even in the right lower quadrant area), nondistended, with normoactive bowel sounds. No bruits noted. Extremities: 2+ radial pulses bilaterally. 2+ posterior tibialis pulses bilaterally. No edema or cyanosis. No palpable cords. Psychiatric: Affect appears appropriate. Chest: Nontender to palpation. Data Laboratory Results: Last 24 Hours Test 03/30/18 08:45 03/30/18 08:53 03/30/18 09:30 03/30/18 12:28 White Blood Count 5.68 K/uL Red Blood Count 4.38 M/uL Hemoglobin 13.5 g/dL Hematocrit 38.7 % Mean Corpuscular Volume 88.4 fL Mean Corpuscular Hemoglobin 30.8 pg Mean Corpuscular Hemoglobin Concent 34.9 g/dl Platelet Count 219 K/uL Mean Platelet Volume 8.8 fL Neutrophils (%) (Auto) 55.0 % Lymphocytes (%) (Auto) 33.5 % Monocytes (%) (Auto) 7.9 % Eosinophils (%) (Auto) 3.0 % Basophils (%) (Auto) 0.4 % Neutrophils # (Auto) 3.13 K/uL Lymphocytes # (Auto) 1.90 K/uL Monocytes # (Auto) 0.45 K/uL Eosinophils # (Auto) 0.17 K/uL Basophils # (Auto) 0.02 K/uL RDW Standard Deviation 42.6 fL RDW Coefficient of Variation 13.2 % Immature Granulocyte % (Auto) 0.2 % Immature Granulocyte # (Auto) 0.01 K/uL Prothrombin Time 9.8 SECONDS Prothromb Time International Ratio 0.9 Activated Partial Thromboplast Time 25.7 SECONDS Partial Thromboplastin Ratio 1.0 Sodium Level 138 mmol/L Potassium Level 3.9 mmol/L Chloride Level 104 mmol/L Carbon Dioxide Level 28 mmol/L Anion Gap 6.0 mmol/L Blood Urea Nitrogen 14 mg/dl Creatinine 0.83 mg/dl Est Creatinine Clear Calc Drug Dose 71.5 ml/min Estimated GFR () 92.0 Estimated GFR (Non- 79.4 BUN/Creatinine Ratio 16.3 Random Glucose 119 mg/dl Calcium Level 9.1 mg/dl Magnesium Level 1.9 mg/dl Total Bilirubin 0.4 mg/dl Aspartate Amino Transf (AST/SGOT) 31 U/L Alanine Aminotransferase (ALT/SGPT) 52 U/L Alkaline Phosphatase 76 U/L Total Creatine Kinase 120 U/L Creatine Kinase MB 2.0 ng/ml Creatine Kinase MB Ratio 1.7 Troponin I < 0.015 ng/ml Total Protein 7.5 gm/dl Albumin 4.0 gm/dl Globulin 3.5 gm/dl Albumin/Globulin Ratio 1.2 Bedside D-Dimer 95 ng/mlFEU Urine Color DK YELLOW Urine Appearance CLEAR Urine pH 5.0 Urine Specific [place] 1.020 Urine Protein NEG Urine Glucose (UA) NEG Urine Ketones NEG Urine Occult Blood NEG Urine Nitrite NEG Urine Bilirubin NEG Urine Urobilinogen NEG Urine Leukocyte Esterase NEG Bedside Glucose 159 mg/dl Test 03/30/18 16:13 03/30/18 16:43 Bedside Glucose 81 mg/dl Troponin I < 0.015 ng/ml ECG personally reviewed ECG 03/30/2018 at 8:39 a.m.: Sinus rhythm 81 bpm. Nonspecific T-wave abnormality. ECG 03/30/2018 at 1:14 p.m.: Sinus rhythm 63 bpm. Possible LVH. Nonspecific T -wave abnormality. Chest x-ray 03/30/2018: No acute process as per Radiology. Chest x-ray personally reviewed: No obvious infiltrate. Assessment & Plan ASSESSMENT/PLAN: 1. Chest pain: Her chest pain is atypical for ischemic heart disease. She is currently experiencing GI symptoms such as nausea, right lower quadrant pain, and had loose stools yesterday. Consider further GI evaluation. Echocardiogram will be ordered for tomorrow. If there is no identifiable etiology her symptoms continue, could consider stress testing at some point when her GI symptoms improved. Troponins are unremarkable. 2. Hypertension: Blood pressure mildly elevated however she does not feel well currently. Blood pressure is only mildly elevated and should not account for her headache. Consider treatment if blood pressure remains elevated even when her symptoms improved. 3. Abnormal ECG: Nonspecific T-wave abnormality. Echo ordered. 4. Abdominal pain/headache/nausea: As per primary service. 5. Disposition: Cardiology will sign off if echo findings are unremarkable. If echo is abnormal or there are any other questions or concerns, please contact Dr. Sepulveda who will be cement mason over the weekend. Thank you for allowing me to participate in the care of your patient. Please call for any other questions or concerns. Sincerely, Giovany Brock M.D.
[2018-03-30] MEDS ORDERED: FLUVOXAMINE MALEATE 50 MG TAB PO SCH (21:00)
[2018-03-30 23:09] VITALS: BP 143/89; PULSE 59; TEMP 36.3; O2SAT 95
[2018-03-30] MEDS ORDERED: MoRPHine SULFATE 4 MG/ML 1 ML CARP\\VIAL IV STA (23:18)
[2018-03-30] MEDS ORDERED: ONDANSETRON INJ 2 MG/ML 2 ML VIAL IV STA (23:19)
[2018-03-30] MEDS ORDERED: MoRPHine SULFATE 4 MG/ML 1 ML CARP\\VIAL ONE (23:29)
[2018-03-31 04:38] VITALS: BP 118/74; PULSE 57; TEMP 36.5; O2SAT 97
[2018-03-31 04:53] LABS: HEMATOCRIT 38.3 % (37-47); HEMOGLOBIN 13.3 g/dL (12.0-16.0); MEAN CELL VOLUME 88.7 fL (80-100); MEAN CORPUSCULAR HEMOGLOBIN 30.8 pg (25-34); MEAN CORPUSCULAR HGB CONC 34.7 g/dl (32-36); PLATELET COUNT 208 K/uL (130-400); RED CELL DISTRIBUTION WIDTH CV 13.1 % (11.5-14.5); RED CELL DISTRIBUTION WIDTH SD 42.3 fL (36.4-46.3); WHITE BLOOD COUNT 5.57 K/uL (4.8-10.8)
[2018-03-31 05:25] LABS: BLOOD UREA NITROGEN 13 mg/dl (7-18); CALCIUM 8.7 mg/dl (8.5-10.1); CARBON DIOXIDE 26 mmol/L (21-32); CHOLESTEROL 222 mg/dl (0-200); CREATININE 0.82 mg/dl (0.60-1.20); GLUCOSE 141 mg/dl (70-99); LDL CHOLESTEROL CALCULATED 101 mg/dl; POTASSIUM 4.2 mmol/L (3.5-5.1); SODIUM 137 mmol/L (136-145)
[2018-03-31] MEDS ORDERED: LEVOTHYROXINE 112 MCG TAB PO SCH (06:30)
[2018-03-31 07:17] VITALS: BP 138/83; PULSE 62; TEMP 36.5; O2SAT 95
--- NOTE | 2018-03-31 08:59 | DIAGNOSTIC IMAGING REPORT ---
ABDOMINAL ULTRASOUND COMPLETE HISTORY: Generalized abdominal Pain, bloating. COMPARISON: Abdomen and pelvis CT 02/13/2018. FINDINGS: Pancreas: The pancreatic tail is obscured by overlying bowel gas. The remaining portions of the pancreas are within normal limits. Liver: The liver is echogenic consistent with fatty change. Mildly enlarged measuring 20 cm in length. Gallbladder: No gallbladder wall thickening. No gallstones. CBD: 5 mm. Kidneys: No hydronephrosis. Spleen: Mildly enlarged measuring 13 cm in length. Aorta: Normal in caliber. IVC: Patent. IMPRESSION: 1. Mild hepatosplenomegaly, unchanged. 2. Hepatic steatosis. 3. Normal gallbladder. No gallstones. Electronically signed by: Nile Christy M.D. 03/31/2018 8:58 AM Dictated Date/Time: 03/31/2018 8:56 AM
[2018-03-31] MEDS ORDERED: ASPIRIN 81 MG ECTAB PO SCH (09:00)
[2018-03-31] MEDS: ENOXAPARIN 40 MG/0.4 ML SYR SC SCH (09:40)
[2018-03-31] MEDS: ROPINIROLE HCL 1 MG TAB PO SCH (09:40)
[2018-03-31] MEDS: INSULIN ASPART 100 UNITS/ML 3 ML PEN SC SCH ×2 (09:41→12:32)
--- NOTE | 2018-03-31 12:12 | Discharge Instructions ---
Discharge Instructions Date of Service March 31, 2018. Admission Reason for Admission: Chest Pain Discharge Discharge Diagnosis / Problem: Chest Pain Discharge Goals Goal(s): Decrease discomfort, Improve function, Increase independence Activity Recommendations Activity Limitations: resume your previous activity . Instructions / Follow-Up Instructions / Follow-Up Chest Pain: Likely GI related - Thankfully everything looks good from a heart perspective. Your cardiac enzymes do not support a heart attack. - Continue to take your daily baby aspirin - If this symptoms continue, could consider a stress test as an outpatient to further assess. Recommend this after your GI symptoms stop. Gastroparesis vs GI issues: - Thankfully your ultrasound looks good. Some fatty liver changes (likely from slightly elevated cholesterol) but even that can be reversible with changes in the diet. - No findings that suggest a bad gallbladder but given your discomfort after eating you may benefit from a HIDA scan. This is a test that will test how your gallbladder is functioning to see if it is causing your problems. Your family doctor can discuss this with you and see if that is something worth pursuing. - Knowing you have gastroparesis, there are some conservative measures to help reduce these issues -- Eat small frequent meals throughout the day. This will allow for your GI tract to have time to process the food instead of having to digest large bulky meals. Recommend to avoid high fat foods and large amounts insoluble fibers ( fruit skins, rice, whole wheat). These foods take longer to process through the GI tract. You can still have these foods but just space them out with other types of food. Fiber is good for the gut and you can use soluble fiber such as oatmeal, nuts, beans, apples, blueberries....Cooking vegetables will help get fiber without the harshness of trying to break down the tough skin on some vegetables -- Avoid carbonated beverages and alcohol as this can increase bloating and slow digestion -- Recommend to start a probiotic. Any probiotic is good and can be purchased over the counter. Initially you can get some increased bloating and looser stool but this will go away and this will help stabilize your gut by putting good bacteria back in the system. With probiotics they do take some time to fully give their benefits but can definitely help the GI system -- If conservative measures do not work, please discuss with your family doctor as there are some medications that can be used to help with gastroparesis High Cholesterol: - Your cholesterol is 222 and would like to see this less than 200. Recommend to avoid high fatty foods and eat good fats such as fish and nuts - With diet and exercise you can quickly get these numbers in a better range. If they stay high a medication could be considered but would recommend diet and exercise at this point - Your family doctor can do routine testing for this in the future to assess for improvement. It will be important given your diabetes to have good cholesterol to reduce the risks of complications such as heart issues. Diabetes: - Your A1c from February shows it is 6..3 which is fantastic. This suggests good control with Metformin. Recommend to continue this as previously prescribed and with diet and exercise you can continue to improve this. Also with this being well controlled it can help prevent issues with gastroparesis Current Hospital Diet Patient's current hospital diet: Diabetes Type 2 Diet, AHA Diet (Heart Healthy) Discharge Diet Recommended Diet: AHA Diet (Heart Healthy), Diabetes Type 2 Diet Pending Studies Studies pending at discharge: no Laboratory Results Hemoglobin A1c Test 02/23/18 09:25 Range/Units Estimated Average Glucose 134 mg/dl Hemoglobin A1c 6.3 H 4.5-5.6 % Lipid Panel Test 03/31/18 04:44 Range/Units Triglycerides Level 363 H 0-150 mg/dl Cholesterol Level 222 H 0-200 mg/dl HDL Cholesterol 48 mg/dl Cholesterol/HDL Ratio 4.6 LDL Cholesterol, Calculated 101 mg/dl Medical Emergencies . Who to Call and When: Medical Emergencies: If at any time you feel your situation is an emergency, please call 911 immediately. . Non-Emergent Contact Non-Emergency issues call your: Primary Care Provider Call Non-Emergent contact if: you have a fever, your pain is concerning you, you have any medication questions . . "Provider Documentation" section prepared by Missy Owusu. .
--- NOTE | 2018-03-31 12:28 | Discharge Summary ---
Discharge Summary Date of Service March 31, 2018. Discharge Summary Admission Date: March 30, 2018 at 10:51 Discharge Date: March 31, 2018 Discharge Disposition: Home Principal Diagnosis: Chest Pain Problems/Secondary Diagnoses: 1. T2DM 2. Hyperlipidemia 3. Gastroparesis 4. Hiatal Hernia Procedures: CHEST ONE VIEW PORTABLE FINDINGS: No pleural effusions. No pneumothorax. The heart is normal in size. Left basilar linear densities likely represent scarring. This remains unchanged. No new focal lung consolidations to suggest pneumonia. No evidence for pulmonary edema. S-shaped scoliosis of the thoracic spine. IMPRESSION: No significant change compared to the prior study. No acute process. ABDOMINAL ULTRASOUND COMPLETE FINDINGS: Pancreas: The pancreatic tail is obscured by overlying bowel gas. The remaining portions of the pancreas are within normal limits. Liver: The liver is echogenic consistent with fatty change. Mildly enlarged measuring 20 cm in length. Gallbladder: No gallbladder wall thickening. No gallstones. CBD: 5 mm. Kidneys: No hydronephrosis. Spleen: Mildly enlarged measuring 13 cm in length. Aorta: Normal in caliber. IVC: Patent. IMPRESSION: 1. Mild hepatosplenomegaly, unchanged. 2. Hepatic steatosis. 3. Normal gallbladder. No gallstones. Consultations: 1. Cardiology Medication Reconciliation Continued Medications: Aspirin (Aspirin Ec) 81 Mg Tab 81 MG PO DAILY Fluvoxamine Maleate (Luvox) 100 Mg Tab 150 MG PO HS Levothyroxine Sodium (Synthroid) 112 Mcg Tab 112 MCG PO DAILY, TAB Metformin Hcl (Glucophage) 500 Mg Tab 500 MG PO BID Ropinirole Hydrochloride (Requip) 1 Mg Tab 2 MG PO BID 1800 AND HS Discharge Exam Review of Systems: Constitutional: No fever, No chills ENT: No nasal symptoms, No sore throat Respiratory: No cough, No shortness of breath Cardiovascular: No chest pain Abdomen: + problem reported (some abdominal bloating), No pain, No nausea, No vomiting, No diarrhea, No constipation Musculoskeletal: No swelling, No calf pain Genitourinary - Female: No dysuria Hematologic / Lymphatic: No abnormal bleeding/bruising Physical Exam: General Appearance: WD/WN, no apparent distress Eyes: sclerae normal ENT: hearing grossly normal Neck: supple, no JVD, trachea midline Respiratory/Chest: lungs clear, normal breath sounds, no respiratory distress, no accessory muscle use Cardiovascular: regular rate, rhythm, no gallop, no murmur Abdomen / GI: normal bowel sounds, non tender, soft Extremities: no pedal edema Neurologic/Psychiatric: alert, oriented x 3 Skin: normal color, warm/dry Hospital Course ADMISSION: Ms. Crawford is a pleasant 57yo C female with history of diabetes, hypertension presenting today with chest pain. 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 She felt warm at the time but no diaphoresis/nausea/palpitations or dizziness. The sharp pain was followed by a chest pressure and heaviness that lasted approximately 10 minutes before resolving on its own. She had a recurrence of the chest pain one hour later, brief sharp pain that was followed by chest heaviness/pressure. She is now complaining only of aching in the left arm. Patient states that she is fairly active. She rides a stationary bike 3 times per week. She does endorse some occasional chest heaviness and aching in her legs after approximately 5 minutes of riding the bike that is relieved with rest. She had some shortness of breath last night with mowing the lawn. She was seen in January 2016 with similar presentation. At that time there were no EKG changes, troponin remained negative. She had a stress echo performed which was negative. No additional complaints at this time. ER Course: ASA 324mg, Tylenol 1000 mg, Nitroglycerine 0.4mg HOSPITAL COURSE: Chest Pain: Possibly GI - Cardiac enzymes were unremarkable and presentation of more abdominal pain with nausea reported - DDx possible for esophageal spasm, gallbladder dysfunction, gastroparesis - U/S Abd without significant findings other than stable fatty liver. - Appears she gets a lot of bloating after eating which could be gastroparesis or may benefit from HIDA scan to assess gallbladder function - Elevated triglycerides and cholesterol of 222. Discussed dietary and exercise to help promote normalization of this. Could consider statin therapy if not within the normal range after exercise/diet trial due to her having T2DM - Gave written instructions on recommendations to better control gastroparesis. - Per cardiology - if these symptoms continue and no better explanation from a GI perspective then could consider outpatient stress testing however symptoms were not consistent with an ischemic cardiac issue at this time - Did have a 2.2 second pause on monitor overnight but no further significant findings; denies issues with syncope; Needs to be noted but not intervention is necessary at this time Diabetes: - Appears controlled with Metformin and advised to continue this with diet/ exercise HTN: - She was initially hypertensive at 170 systolic which may be pain related; Largely stable with intermittent readings of 140/80. No intervention necessary but should be monitored for eventual treatment if it is warranted Total Time Spent: Greater than 30 minutes This includes examination of the patient, discharge planning, medication reconciliation, and communication with other providers. Discharge Instructions Please refer to the electronic Patient Visit Report (Discharge Instructions) for additional information. Additional Copies To Herb Rosen M.D.
[2018-03-31 12:32] VITALS: BP 130/88; PULSE 69; TEMP 36.5; O2SAT 95
--- NOTE | 2018-03-31 14:50 | ECHOCARDIOGRAM REPORT ---
*NOTICE TO RECEIVING [employer] This information is strictly Confidential and protected under [place] law. [place] law prohibits you from making any further disclosure of this information unless further disclosure is expressly permitted by the written consent of the person to whom it pertains or is authorized by law. A general authorization for the release of medical or other information is not sufficient for this purpose. Hospital accepts no responsibility if the information is made available to any other person, INCLUDING THE PATIENT. Interpretation Summary * Name: MARILIN BAH Study Date: 03/31/2018 09:51 AM BP: 118/74 mmHg * Patient Location: [facility]\S\N280\S\1 HR: 67 * : 1960 (M/d/yyyy) Gender: Female Height: 60 in * Age: 57 yrs Ethnicity: CA Weight: 175 lb * Ordering Physician: Rashad Brock * Referring Physician: Herb Rosen * Performed By: Iglesia Michael RDCS * * Reason For Study: Chest pain * BSA: 1.8 m2 * -- Conclusions -- * 1. Top-normal left ventricular size with normal systolic function. EF 60-65%. No regional wall motion abnormalities. No left ventricular hypertrophy. No significant diastolic dysfunction. * 2. No significant valvular abnormalities. * 3. Normal estimated right ventricular systolic pressure. Procedure Details * A complete two-dimensional transthoracic echocardiogram was performed (2D, M-mode, Doppler and color flow Doppler). * The study was technically adequate. Left Ventricle * Top-normal left ventricular size with normal systolic function. EF 60-65%. No regional wall motion abnormalities. No left ventricular hypertrophy. No significant diastolic dysfunction. Right Ventricle * The right ventricle is normal in size and function. * The right ventricular systolic function is normal as assessed by tricuspid annular plane systolic excursion (TAPSE) (normal >1.5 cm). Atria * The left atrial size is normal. * Right atrial size is normal. * There is no evidence of atrial septal defect, but resolution does not allow assessment for a patent foramen ovale. Mitral Valve * The mitral valve leaflets appear normal. There is no evidence of stenosis, fluttering, or prolapse. * There is trace mitral regurgitation. Tricuspid Valve * The tricuspid valve is not well visualized, but is grossly normal. * There is no tricuspid stenosis. * There is trace tricuspid regurgitation. Aortic Valve * The aortic valve is trileaflet. * No hemodynamically significant valvular aortic stenosis. * Trace aortic regurgitation. Pulmonic Valve * The pulmonary valve is inadequately visualized, but the Doppler data is adequate for interpretation. * There is no pulmonic valvular stenosis. * Mild pulmonic valvular regurgitation. Great Vessels * The aortic root is normal size. * Ascending aorta of normal dimension * Normal pulmonary venous flow pattern. Pericardium/Pleural * There is no pericardial effusion. Great Vessels * Normal inferior vena cava size and collapsability with sniff indicates a normal right atrial pressure of 3 mmHg MMode 2D Measurements and Calculations IVSd 0.82 cm IVSs 1.5 cm LVIDd 5.2 cm LVIDs 3.4 cm LVPWd 0.80 cm LVPWs 1.5 cm IVS/LVPW 1.0 FS 34.7 % EDV(Teich) 130.4 ml ESV(Teich) 47.7 ml EF(Teich) 63.4 % EDV(cubed) 141.9 ml ESV(cubed) 39.5 ml EF(cubed) 72.1 % % IVS thick 78.1 % % LVPW thick 82.5 % LV mass(C)d 147.6 grams LV mass(C)dI 83.7 grams/m\S\2 LV mass(C)s 177.4 grams LV mass(C)sI 100.6 grams/m\S\2 SV(Teich) 82.7 ml SI(Teich) 46.9 ml/m\S\2 SV(cubed) 102.3 ml SI(cubed) 58.0 ml/m\S\2 Ao root diam 2.9 cm Ao root area 6.5 cm\S\2 ACS 1.6 cm LA dimension 4.2 cm asc Aorta Diam 2.9 cm LA/Ao 1.4 LVOT diam 2.0 cm LVOT area 3.1 cm\S\2 LVAd ap4 28.4 cm\S\2 LVLd ap4 7.6 cm EDV(MOD-sp4) 91.2 ml EDV(sp4-el) 90.5 ml LVAs ap4 15.7 cm\S\2 LVLs ap4 6.2 cm ESV(MOD-sp4) 33.3 ml ESV(sp4-el) 33.8 ml EF(MOD-sp4) 63.5 % EF(sp4-el) 62.7 % LVAd ap2 29.8 cm\S\2 LVLd ap2 8.3 cm EDV(MOD-sp2) 94.1 ml EDV(sp2-el) 91.1 ml LVAs ap2 15.3 cm\S\2 LVLs ap2 6.2 cm ESV(MOD-sp2) 31.4 ml ESV(sp2-el) 31.9 ml EF(MOD-sp2) 66.6 % EF(sp2-el) 64.9 % LVLd %diff 8.6 % EDV(MOD-bp) 97.9 ml LVLs %diff 0.78 % ESV(MOD-bp) 32.1 ml EF(MOD-bp) 67.2 % SV(MOD-sp4) 57.9 ml SI(MOD-sp4) 32.8 ml/m\S\2 SV(MOD-sp2) 62.7 ml SI(MOD-sp2) 35.6 ml/m\S\2 SV(MOD-bp) 65.7 ml SI(MOD-bp) 37.3 ml/m\S\2 SV(sp4-el) 56.7 ml SI(sp4-el) 32.2 ml/m\S\2 SV(sp2-el) 59.2 ml SI(sp2-el) 33.6 ml/m\S\2 Doppler Measurements and Calculations MV E max lesley 82.0 cm/sec MV A max lesley 77.1 cm/sec MV E/A 1.1 MV dec time 0.23 sec Ao V2 max 137.2 cm/sec Ao max PG 7.5 mmHg Ao max PG (full) 3.2 mmHg KATE(V,A) 2.4 cm\S\2 KATE(V,D) 2.4 cm\S\2 LV V1 max PG 4.3 mmHg LV V1 max 103.7 cm/sec PA V2 max 102.9 cm/sec PA max PG 4.2 mmHg PI end-d lesley 129.1 cm/sec TR max lesley 232.9 cm/sec RVSP(TR) 24.7 mmHg RAP systole 3.0 mmHg
[2018-03-31 15:24] VITALS: BP 130/88; PULSE 69; TEMP 36.5; O2SAT 95
== END 2018-03-31 16:05 | disposition home or self-care (01) ==
LOC: EDBD 08:38 → C.EDB 08:39 → C.MED 10:51 → ENRESERV 11:19
PROVIDERS: ADMIT Internal Medicine; ATTEND Internal Medicine
DX: R07.9 Chest pain, unspecified (principal); E11.9 Type 2 diabetes mellitus without complications; Z79.84 Long term (current) use of oral hypoglycemic drugs; I10 Essential (primary) hypertension; Z79.82 Long term (current) use of aspirin; Z88.8 Allergy status to other drugs, medicaments and biological substances; E03.9 Hypothyroidism, unspecified